=== PATIENT | female | born 1950 | race Caucasian/White ===

== ENCOUNTER 2018-10-25 18:32 | Inpatient (IN) ==
[2018-10-25] MEDS ORDERED: SOLU-MEDROL IV ONE (19:57)
[2018-10-25] MEDS ORDERED: DUONEB (A & A) INH ONE (19:57)
--- NOTE | 2018-10-25 20:36 | Diag Imaging Result Doc PS360 ---
EXAM: CHEST-1 VIEW 10/25/2018 HISTORY: sob TECHNIQUE: AP upright portable at 2023 COMMENT: There is alveolar and interstitial opacity generally particularly in the lower lobes. This is worse than on 03/10/2018. IMPRESSION: Pulmonary edema plus minus pneumonia. Electronically signed by Quoc Lawrence 10/25/2018 8:33 PM
[2018-10-25 20:40] LABS: BASO# 0.06 X1000 (0.0-0.2); BASO% 0.6 % (0.0-0.8); EOS# 0.01 X1000 (0.0-0.7); EOS% 0.1 % (0.0-10.0); HEMOGLOBIN 13.4 g/dL (12.0-16.0); IMM GRAN# 0.03 X1000 (0.0-0.04); IMM GRAN% 0.3 % (0.0-0.5); LYMPH# 1.23 X1000 (1.2-3.4); LYMPH% 11.4 % (20.5-51.1); MCHC 32.7 g/dL (33-37); MCV 85.6 FL (81-99); MONO# 0.66 X1000 (0.11-0.59); MONO% 6.1 % (1.7-9.3); MPV 10.4 FL (7.4-10.4); NEUT# 8.76 X1000 (1.4-6.5); NEUT% 81.5 % (42.2-75.2); PLT 200 X1000 (130-400); RBC 4.79 XMIL (4.2-5.4); RDW 16.1 % (11.5-14.5); WBC 10.75 X1000 (4.8-10.8)
[2018-10-25 20:52] LABS: AGAP 15; ALB/GLOB RATIO 1.2; ALBUMIN 3.5 g/dL (3.5-5.0); ALKALINE PHOSPHATASE 112 U/L (32-104); BUN 29 mg/dL (8-22); CALCIUM 8.6 mg/dL (8.8-10.2); CHLORIDE 95 mmol/L (98-107); COSMO 276; CREATININE 0.6 mg/dL (0.5-0.9); ESTIMATED GFR > 60; GLUCOSE 159 mg/dL (70-104); GOT 18 U/L (10-30); GPT 8 U/L (10-36); POTASSIUM 4.4 mmol/L (3.5-5.1); SODIUM 133 mmol/L (136-145); TCO2 23 mmol/L (25-35); TOTAL BILIRUBIN 0.56 mg/dL (0.20-1.00); TOTAL PROTEIN 6.4 g/dL (6.3-8.3)
[2018-10-25] MEDS ORDERED: LASIX IV ONE (21:16)
[2018-10-25] MEDS ORDERED: LEVAQUIN 750 MG/D5W 750 MG/150 ML IVPB IV ONE (21:17)
--- NOTE | 2018-10-25 23:45 | PROVIDER DOCUMENTATION ---
This chart was entered by Leah Lucas Scribe, acting as scribe for Clive Braxton MD. HPI-Respiratory General - General Chief Complaint: Shortness of Breath Stated Complaint: PNEUMONIA Time Seen by Provider: 10/25/18 19:08 Source: patient Allergies/Adverse Reactions: Patient Allergies Allergy/AdvReac Type Severity Reaction Status Date / Time cephalexin monohydrate * Allergy SWELLING Verified 03/07/18 21:22 [From Keflex] Home Medications: Home Medication List Medication Instructions Recorded Confirmed Last Taken Type Naproxen 500 mg PO BID 09/16/17 03/07/18 09/15/17 History Oxycodone HCl/Acetaminophen 1 each PO 4XDAY PRN PRN 09/16/17 03/07/18 Unknown History [Percocet 7.5-325 mg Tablet] Gabapentin 400 mg PO TID 03/07/18 03/07/18 Unknown History Tizanidine HCl 4 mg PO DAILY 03/07/18 03/07/18 Unknown History Albuterol Sulfate Inhaler 2 puff INH Q6H PRN PRN 30 Days #1 03/10/18 Unknown Rx [Ventolin Hfa] inhaler Fluticasone/Salmet 250/50 INH 1 puff INH RTBID 30 Days #1 inhaler 03/10/18 Unknown Rx [Advair 250/50 Diskus] Guaifenesin E.r. [Mucinex] 600 mg PO BID #60 tab 03/10/18 Unknown Rx Levofloxacin [Levaquin] 500 mg PO DAILY #7 tab 03/10/18 Unknown Rx Naproxen [Naprosyn] 500 mg PO BID tablet 03/10/18 Unknown Rx - History of Present Illness-Resp Nature of Presenting Problem: Pt is 67/F presenting tp ED w/ SOB, she sts that she has had a hard time breathing for some time but that it has gotten worse over the last week or so. She sts that she had a surgery that removed part of her lung back in and she has had a hard time since. She reports coughing as well. She has o2 at home on 6l and uses breathing treatments. pt is a current everyday smoker. Hx of COPD Severity in ED: reports: moderate Onset/Duration: reports: other (1-2 weeks) Timing: reports: getting worse Exposure: reports: other (COPD) Cough Quality/Degree: reports: moderate Episode Frequency: chronic episodes Current Respiratory Medication Therapy: Initiated albuterol Modifying Factors: improves with: exertion, coughing, oxygen Associated Symptoms: reports: cough, short of breath Similar Symptoms Previously?: Yes Recently seen or treated by another doctor?: No Review of Systems - Adult - REVIEW OF SYSTEMS - ADULT Constitutional: reports: no symptoms reported. denies: chills, fever Eyes: reports: no symptoms reported Ears, Nose, Mouth & Throat: reports: no symptoms reported Cardiovascular: denies: chest pain, edema Respiratory: reports: chronic cough, shortness of breath Gastrointestinal: reports: no symptoms reported Genitourinary: reports: no symptoms reported Musculoskeletal: reports: no symptoms reported Integumentary: reports: no symptoms reported Neurological: reports: no symptoms reported. denies: dizziness/vertigo, headache/migraines Psychiatric: reports: no symptoms reported Endocrine: reports: no symptoms reported Hematologic/Lymphatic: reports: no symptoms reported Allergic/Immunologic: reports: no symptoms reported All Other Systems: Reviewed and Negative Past History - Adult - PAST MEDICAL HISTORY-ADULT Review of Records: reports: Old Records Reviewed, Nursing Assessment Review, Medications Reviewed, Social history reviewed & non-contributory. Respiratory: reports: COPD - PRIOR SURGERIES/PROCEDURES Surgical/Procedure History: reports: hysterectomy - IMMUNIZATION STATUS Childhood Immunizations: See Nurse Assessment Flu Vaccine: See Nurse Assessment - SOCIAL HISTORY Smoking: cigarettes Provider spent 3-5 mins advising pt. on dangers of tobacco.: Discussed manners to quit use, and f/u contacts for add'l counseling. Substance Use: none/never Alcohol Use Frequency: never Living Situation: family Physical Exam-General - CONSTITUTIONAL General Appearance: appears well, alert, no apparent distress - EYES Eyes: PERRL/EOMI - HEAD, EARS, NOSE, MOUTH & THROAT HENMT: moist mucous membranes, normal ENT inspection, TMs normal - NECK Neck: non-tender, full range of motion, supple, normal inspection - RESPIRATORY Respiratory: chest non-tender, other (course breath sounds bilaterally) - CARDIOVASCULAR Cardiovascular: regular rate, rhythm, no edema - LYMPHATIC Lymphatic: no adenopathy - MUSCULOSKELETAL Back Exam: normal inspection, no CVA tenderness, no vertebral tenderness - SKIN Integumentary: normal color, warm/dry - NEUROLOGIC Neurologic: grossly normal - PSYCHIATRIC Psych/Mental Status: normal mood/affect, normal thought content, normal thought process, oriented x 3 Progress - PLAN OF CARE/RESULTS Progress/Plan/Lab Results: Vital Signs - 8 hr 10/25/18 18:53 10/25/18 19:00 10/25/18 20:31 Temperature 98.8 F Pulse Rate 100 H 88 Respiratory Rate 20 16 Blood Pressure 94/48 O2 Sat by Pulse Oximetry 71 L 10/25/18 21:41 Temperature Pulse Rate 87 Respiratory Rate 18 Blood Pressure 103/65 O2 Sat by Pulse Oximetry 90 L 10/25/18 20:25 Influenza Screen - Final Nasopharyngeal Laboratory Results - last 24 hr 10/25/18 10/25/18 10/25/18 19:11 19:11 19:11 WBC 10.75 RBC 4.79 Hgb 13.4 Hct 41.0 MCV 85.6 MCH 28.0 MCHC 32.7 L RDW Std Deviation 16.1 H Plt Count 200 MPV 10.4 Immature Gran % (Auto) 0.3 Neut % (Auto) 81.5 H Lymph % (Auto) 11.4 L [place] % (Auto) 6.1 Eos % (Auto) 0.1 Baso % (Auto) 0.6 Immature Gran # (Auto) 0.03 Neut # (Auto) 8.76 H Lymph # (Auto) 1.23 [place] # (Auto) 0.66 H Eos # (Auto) 0.01 Baso # (Auto) 0.06 Sodium 133 L Potassium 4.4 Chloride 95 L Carbon Dioxide 23 L Anion Gap 15 BUN 29 H Creatinine 0.6 Estimated GFR/1.73 m2 > 60 BUN/Creatinine Ratio 48 Glucose 159 H Calculated Osmolality 276 Calcium 8.6 L Total Bilirubin 0.56 AST 18 ALT 8 L Alkaline Phosphatase 112 H Troponin T Tmi-S-Cleqswiiask Pept 1012 H Total Protein 6.4 Albumin 3.5 Globulin 2.9 Albumin/Globulin Ratio 1.2 10/25/18 19:11 WBC RBC Hgb Hct MCV MCH MCHC RDW Std Deviation Plt Count MPV Immature Gran % (Auto) Neut % (Auto) Lymph % (Auto) [place] % (Auto) Eos % (Auto) Baso % (Auto) Immature Gran # (Auto) Neut # (Auto) Lymph # (Auto) [place] # (Auto) Eos # (Auto) Baso # (Auto) Sodium Potassium Chloride Carbon Dioxide Anion Gap BUN Creatinine Estimated GFR/1.73 m2 BUN/Creatinine Ratio Glucose Calculated Osmolality Calcium Total Bilirubin AST ALT Alkaline Phosphatase Troponin T < 0.010 Fif-K-Mvtnsyrpjla Pept Total Protein Albumin Globulin Albumin/Globulin Ratio Orders Category Date Time Status cxr [CHEST-1 VIEW] [RAD] Stat Exams 10/25/18 19:55 Completed BLOOD CULTURE [BLDCUL] Stat Lab 10/25/18 19:11 Results BNP [PRO B-NATRIURETIC PEPTIDE] Stat Lab 10/25/18 19:11 Completed CBC WITH ELECTRONIC DIFF [HEME] Stat Lab 10/25/18 19:11 Completed COMPREHENSIVE METABOLIC PANEL [CHEM] Stat Lab 10/25/18 19:11 Completed INFLUENZA SCREEN A/B Stat Lab 10/25/18 20:25 Completed TROPONIN T Stat Lab 10/25/18 19:11 Completed UA [URINALYSIS] [URINALYSIS] Stat Lab 10/25/18 19:56 Uncollected Albuterol 2.5MG/Ipratrop 0.5MG [Duoneb (A & A)] Med 10/25/18 19:57 Discontinued 3 ml INH NOW ONE Furosemide [Lasix] Med 10/25/18 21:16 Discontinued 40 mg IV NOW ONE Levofloxacin 750 mg/D5w [Levaquin 750 mg/D5w] Med 10/25/18 21:17 Discontinued 750 mg in 150 ml IV NOW Methylprednisolone Sod Succ [Solu-Medrol] Med 10/25/18 19:57 Discontinued 125 mg IV NOW ONE Aerosol Treatments Routine Oth 10/25/18 19:57 Completed Aerosol Treatments Stat Oth 10/25/18 19:57 Completed Result Diagrams: 10/25/18 19:11 10/25/18 19:11 - EKG 1 Time of EKG reading by physician:: 19:15 EKG Read and Signed by:: Clive Braxton EKG Interpretation (*Must complete 3 of following elements*): Abnormal (Normal sinus rhythm, Septal infarct, Age undetermined Abnormal ECG) Rate: 97 Rhythm: sinus - XRAY 1 XRAY: Bilateral XRAY Study: Chest Impression: Abnormal (COMMENT: There is alveolar and interstitial opacity generally particularly in the lower lobes. This is worse than on 03/10/2018. IMPRESSION: Pulmonary edema plus minus pneumonia. Electronically signed by Quoc Lawrence 10/25/2018 8:33 PM 10/25/182032 Interpreting Physician: Quoc Lawrence MD Dictated Date/Time: 10/25/182032) Comparison with other Films: changes noted Departure - Departure Date of Disposition Decision: 10/25/18 Time of Disposition Decision: 23:44 DIAGNOSIS: Pleural effusion Pneumonia Qualifiers: Pneumonia type: due to unspecified organism Laterality: unspecified laterality Lung location: unspecified part of lung Qualified Code(s): J18.9 - Pneumonia, unspecified organism Disposition: ADMITTED INPATIENT 09 Certified Medical Emergency: Emergent Condition: Stable Referrals and Follow-Ups: None,PCP [Primary Care Provider] - - Critical Care Note This patient required my direct & personal management of CC.: No Attestation - Physician/ BONNY Attestation Patient care was provided by Advanced Practice Provider:: No The physician spent face to face time with patient:: Yes Advanced Practice Provider documentation review:: Supervising physician onsite and consulted in the evaluation and care of this patient. The physician did have a face to face encounter with the patient. This chart was documented by the indicated scribe, (Leah Lucas, Ann) and accurately reflects the services I performed and decisions made by me, Clive Braxton MD, as attested by the provider's signature.
[2018-10-26] MEDS ORDERED: ZOFRAN IV PRN (01:45)
--- NOTE | 2018-10-26 02:37 | HISTORY AND PHYSICAL ---
PRIMARY CARE PHYSICIAN: Dr. Claros. CHIEF COMPLAINT: Shortness of breath. HISTORY OF PRESENTING ILLNESS: A 67-year-old female with a history of COPD on home oxygen who had presented to emergency department complaining of having cough that was productive of yellowish material, shortness of breath for the past several days. The patient states that she was in [facility] in July or so where she had a lung biopsy and since that time she has been having frequent pneumonia, cough and shortness of breath. The patient states that earlier today she tried to increase her oxygen and did some nebs treatment. However, she did not have any improvement. The patient was seen in the emergency department and due to her presenting symptoms it was thought that she would need admission for further management. At the time of my examination, she denied any headache, fever, chills, chest pain, hemoptysis, but complained of shortness of breath, cough and not feeling well. PAST MEDICAL HISTORY: Includes COPD on home oxygen. PAST SURGICAL HISTORY: Cholecystectomy hysterectomy, back surgery. ALLERGIES: Keflex. CURRENT MEDICATIONS: Current medications include the following: Albuterol sulfate inhaler 2 puffs inhalation q.6 hours, Advair 250/50 one puff inhalation b.i.d., gabapentin 400 mg p.o. t.i.d., naproxen 500 mg p.o. b.i.d., Percocet 7.5 mg 1 p.o. 4 times a day, tizanidine 4 mg 1 p.o. daily. SOCIAL HISTORY: 80 pack-year history of smoking. Denies any history of alcohol or illicit drug use. FAMILY HISTORY: No history of coronary artery disease. REVIEW OF SYSTEMS: Fourteen point review of system as listed in HPI. Other systems negative. PHYSICAL EXAMINATION: GENERAL: Cooperative, friendly female. She is resting more comfortably now. VITAL SIGNS: Temperature 98.8 degrees, pulse 100, respirations 20, blood pressure 94/48. HEENT: Atraumatic, normocephalic. Extraocular movements intact. PERRLA. NECK: No masses. CHEST: Rhonchi. CARDIOVASCULAR: Regular rate and rhythm. ABDOMEN: Soft, positive bowel sounds. EXTREMITIES: No edema. NEUROLOGIC: She is awake, alert, oriented x3. GENITOURINARY: No bladder distention. SKIN: Warm. LABORATORIES AND STUDIES: WBCs 10.75, hemoglobin 13.4, hematocrit 41.0, platelets 200,000. Sodium 133, potassium 4.4, chloride 95, CO2 23, BUN is 29, creatinine 0.6, glucose 159. ProBNP is 1012. Troponin is 0.010. Chest x-ray shows pulmonary edema plus/minus pneumonia. ASSESSMENT: A 67-year-old female with a history of chronic obstructive pulmonary disease on home oxygen. Had presented to the emergency department with several days history of worsening shortness of breath. The patient was evaluated in the emergency department, had imaging done, was suspicious for pneumonia. Subsequently, she will need admission for further management. 1. Acute on chronic respiratory failure. 2. Suspected pneumonia. 3. Chronic obstructive pulmonary disease. 4. Chronic low back pain. PLAN: 1. We will admit patient to medical floor with telemetry. 2. We will continue with supplemental oxygen. 3. If she does not improve, we will consider BiPAP initially. 4. We will check blood cultures and start patient on DuoNebs and continue with IV antibiotics. 5. Give patient adequate pain control. 6. Put patient on DVT prophylaxis with SCD. 7. Continue to follow, and reassess and make further recommendation based on patient's clinical course. cc: John Bates MD
[2018-10-26] MEDS: DUONEB (A & A) INH SCH ×6 (03:09→23:28)
[2018-10-26] MEDS: SOLU-MEDROL IV SCH ×3 (05:09→23:09)
--- NOTE | 2018-10-26 07:34 | EKG Report ---
Test Performed on : 10/25/2018 7:15:26 PM Test Reason : ED. NO EKG ORDER FOR MUSE Blood Pressure : / mmHG Vent. Rate : 097 BPM Atrial Rate : 097 BPM P-R Int : 126 ms QRS Dur : 080 ms QT Int : 344 ms P-R-T Axes : 066 038 023 degrees QTc Int : 436 ms Normal sinus rhythm. Septal infarct (cited on or before 19-JUL-2010) Abnormal ECG When compared with ECG of 07-MAR-2018 20:56, No significant change was found Unconfirmed Result
[2018-10-26] MEDS: PERCOCET-5 PO PRN ×2 (09:03→15:09)
[2018-10-26] MEDS: ZOSYN 3.375 GM in NS 50 ML IV SCH ×3 (10:54→23:09)
[2018-10-26] MEDS: PROTONIX IV SCH (10:54)
[2018-10-26] MEDS: SODIUM CHLORIDE 0.9% INJ SCH (10:54)
--- NOTE | 2018-10-26 10:54 | Diag Imaging Result Doc PS360 ---
CT THORAX W/O CONTRAST - 10/26/2018 INDICATION: pna COMPARISON: 10/25/2018, 09/16/2017 FINDINGS: There is advanced COPD. There are extensive multilobar bilateral infiltrates worse in the lower lobes. The appearance is nonspecific but most suggestive of bronchopneumonia. There is mild cardiomegaly. No adenopathy. There are apparent surgical resection sutures in the right upper lobe. Upper abdominal images are grossly normal. No acute or destructive bony lesions. IMPRESSION: 1. Extensive multilobar bilateral infiltrates consistent with bronchopneumonia. 2. COPD. 3. Mild cardiomegaly. This exam was performed using automated exposure control, adjustment of mA or kV according to patient size, and/or use of iterative reconstruction technique Electronically signed by Hiram Acosta 10/26/2018 10:51 AM
[2018-10-26] MEDS: CHLORASEPTIC SPRAY MT PRN ×2 (13:43→18:15)
[2018-10-26 15:23] LABS: URINE SOURCE CLEAN CATCH
[2018-10-26 15:36] LABS: BILIRUBIN URINE NEGATIVE (NEGATIVE); BLOOD URINE MODERATE (NEGATIVE); COLOR YELLOW; GLUCOSE URINE NEGATIVE (NEGATIVE); KETONE URINE NEGATIVE (NEGATIVE); LEUKOCYTES URINE NEGATIVE (NEGATIVE); NITRITE URINE NEGATIVE (NEGATIVE); PROTEIN URINE 50 mg/dL (NEGATIVE); SP GRAVITY URINE 1.016; TURBIDITY URINE CLEAR (CLEAR); UROBILINOGEN URINE NORMAL (NORMAL)
[2018-10-26 15:40] LABS: UR EPITHELIAL CELLS <10 /HPF (<10); URINE BACTERIA NEGATIVE /HPF; URINE RBC 20-40 /HPF (<10); URINE WBC <10 /HPF (<10)
[2018-10-26 15:57] LABS: URINE CASTS NONE SEEN; URINE CRYSTALS NONE SEEN; URINE SMALL ROUND CELLS NONE SEEN; URINE YEAST PRESENT
[2018-10-26] MEDS: ZITHROMAX PO SCH (17:53)
[2018-10-26] MEDS ORDERED: LEVAQUIN 500 MG/D5W 500 MG/100 ML IVPB IV SCH (21:00)
[2018-10-27] MEDS: PERCOCET-5 PO PRN ×4 (00:16→20:46)
[2018-10-27] MEDS: DUONEB (A & A) INH SCH ×5 (03:41→20:20)
--- NOTE | 2018-10-27 04:27 | PULMONOLOGY CONSULTATION ---
DATE: 10/26/2018 REQUESTING PHYSICIAN: Dr. Hummel. REASON FOR CONSULTATION: COPD. HISTORY OF PRESENT ILLNESS: Ms. Swanson is a 67-year-old white female with COPD, chronic hypoxemic respiratory failure, who was referred to [facility] last fall for a pulmonary nodule by her report. She was evaluated by Dr. Cardona, and subsequently underwent a robotic surgery for a lung biopsy in July. The patient reports she was released from Dr. Cardona' clinic at the end of July with plans to follow up with pulmonary locally. The patient reports she has not done well since that time. She has lost greater than 20 pounds over the last year. The report is not available from that biopsy, but she reports it may have demonstrated " tissue," but no evidence of cancer. The patient reports she has had progressive shortness of breath, small-to- moderate amount of sputum production, intermittent chills, decreased appetite with ongoing weight loss. She reports her breathing has worsened over the last week. PAST MEDICAL HISTORY/PROBLEM LIST: 1. COPD as per above. 2. Osteoarthritis and chronic back pain. 3. Status post back surgery. 4. Status post cholecystectomy. 5. Status post hysterectomy. SOCIAL HISTORY: Ongoing tobacco use. No alcohol use listed. FAMILY HISTORY: Positive for renal failure, hepatitis B, lung cancer, COPD, kidney failure. Both parents in a motor vehicle accident. REVIEW OF SYSTEMS: Is as noted in the HPI and includes occasional chills, sputum production which is minor in amount without recent change, weight loss, fatigue, increased shortness of breath, decreased appetite/anorexia. PHYSICAL EXAMINATION: General: Reveals a frail white female with a BMI of 13.5. She has a documented 20-pound weight loss over the last year. Vital Signs: Blood pressure 112/59, heart rate 67, respiratory rate 12, oxygen saturation 92%. HEENT: Pupils are equal and reactive. Oropharynx is clear. Neck: Supple. Chest: Reveals coarse crackles and rhonchi bilaterally without tactile fremitus. Cardiac Exam: S1 and S2. Abdomen: Soft and scaphoid. Extremities: Without edema. LABORATORY DATA: White blood count 10.75, hemoglobin 13.4, platelet count 200,000. Sodium 133, potassium 4.4, chloride 95, bicarbonate 23, BUN 29, creatinine 0.6. CT scan of the thorax is reviewed. She has some bilateral infiltrates with a bibasilar predominance with areas of consolidation. She has a suture line in the right upper lobe. CT scan is compared to prior CT scan from 09/16/2017, the patient had some minor infiltrates/consolidation in the lung bases compared to current scan. Sodium 133, potassium 4.4, chloride 95, bicarbonate 23, BUN 29, creatinine 0.6, white blood count 10.75, hemoglobin 13.4, platelet count 200,000. IMPRESSION: The patient is a 67-year-old with chronic obstructive pulmonary disease, hypoxemic respiratory failure, abnormal weight loss, with progressive consolidation in the lower lobes. It is possible that the findings are an acute event and this may represent a simple bacterial pneumonia. However, it is possible that she is having progressive consolidation from a yet determined lung process such as pulmonary fibrosis or other infiltrative diseases. Malignancy has not been completely excluded with the radiographic findings. RECOMMENDATIONS: 1. Agree with steroids and antibiotics with bronchodilators as you are doing. 2. Attempt to collect sputum for C and S. 3. Encourage the patient to stop smoking. 4. Send connective tissue cascade. 5. Rule out multiple myeloma. 6. Obtain biopsy from [facility] which was performed last fall. 7. Agree with nutrition supplementation. 8. Prognosis is guarded given her progressive decline. cc: Paulo Isbell MD
[2018-10-27] MEDS: SOLU-MEDROL IV SCH ×3 (04:50→20:45)
[2018-10-27] MEDS: ZOSYN 3.375 GM in NS 50 ML IV SCH ×4 (04:51→22:49)
[2018-10-27 07:02] LABS: HEMATOCRIT 36.7 % (37.0-47.0); HEMOGLOBIN 12.1 g/dL (12.0-16.0); MCH 28.9 PG (27-31); MCV 87.8 FL (81-99); RBC 4.18 XMIL (4.2-5.4); WBC 6.18 X1000 (4.8-10.8)
[2018-10-27 07:07] LABS: AGAP 13; BUN 40 mg/dL (8-22); CALCIUM 8.7 mg/dL (8.8-10.2); CHLORIDE 100 mmol/L (98-107); COSMO 297; CREATININE 0.5 mg/dL (0.5-0.9); ESTIMATED GFR > 60; GLUCOSE 277 mg/dL (70-104); SODIUM 139 mmol/L (136-145); TCO2 26 mmol/L (25-35)
[2018-10-27] MEDS: ZITHROMAX PO SCH (10:44)
[2018-10-27] MEDS: SODIUM CHLORIDE 0.9% INJ SCH (10:45)
[2018-10-27] MEDS: CHLORASEPTIC SPRAY MT PRN (10:45)
[2018-10-27] MEDS: PROTONIX IV SCH (10:45)
[2018-10-28] MEDS: DUONEB (A & A) INH SCH ×6 (00:14→19:37)
--- NOTE | 2018-10-28 01:18 | PROGRESS NOTE ---
DATE: 10/27/2018 SUBJECTIVE: This patient is complaining of generalized pain and shortness of breath, as per the patient she has been feeling worse since last July. For now will continue with the same management. Pulmonary Department on board. OBJECTIVE: Vital Signs: Temperature 97.4 degrees, pulse 82, respiratory rate 16, blood pressure 129/72, oxygen saturation 94 on 4 L of nasal cannula. General: female 67-year-old with cachexia, BMI of 13.5. HEENT: Head normocephalic. No trauma. PERRLA. Neck: Supple. No JVD. No masses. Central trachea. Chest: Decreased breath sounds globally with coarse breath sounds and some crackles and rhonchi mostly at the bases. Cardiovascular: RRR. Abdomen: Soft, is nontender, nondistended. No hepatosplenomegaly. Extremities: No edema, no clubbing, no cyanosis. Decreased muscle mass and some painful to palpation which is generalized. Neurological: The patient is alert and oriented x3, no focal deficits. LABORATORY: WBC 6.1, hemoglobin 12.1, hematocrit 36.7, platelet 184,000, sodium 139, potassium 4, chloride 100, bicarbonate 26, BUN 40, creatinine 0.5, glucose 277, calcium 8.7, CEA 4.6. TSH is 0.11. ASSESSMENT AND PLAN: 1. Respiratory failure likely due to pneumonia and history of chronic obstructive pulmonary disease, will continue with the same management. Continue with steroids, antibiotics, bronchodilators, pulmonary toilet and oxygen supplementation. 2. Bilateral lower lobe pneumonia as above. 3. Chronic obstructive pulmonary disease, she is not wheezing at this moment. Will continue with the same management. Pulmonary Department on board. 4. Severe protein calorie malnutrition, continue with her diet. Likely we need to consult the caponizer. 5. Chronic low back pain. She has been placed on pain medication. We will continue with the same management. cc: Ronaldo Garza MD
[2018-10-28] MEDS: SOLU-MEDROL IV SCH ×3 (04:26→21:00)
[2018-10-28] MEDS: ZOSYN 3.375 GM in NS 50 ML IV SCH ×3 (04:27→16:30)
[2018-10-28 06:55] LABS: BASO# 0.01 X1000 (0.0-0.2); BASO% 0.1 % (0.0-0.8); HEMATOCRIT 36.1 % (37.0-47.0); HEMOGLOBIN 11.8 g/dL (12.0-16.0); IMM GRAN# 0.12 X1000 (0.0-0.04); IMM GRAN% 1.5 % (0.0-0.5); LYMPH# 0.41 X1000 (1.2-3.4); LYMPH% 5.1 % (20.5-51.1); MCH 28.7 PG (27-31); MCHC 32.7 g/dL (33-37); MCV 87.8 FL (81-99); MONO# 0.35 X1000 (0.11-0.59); MONO% 4.4 % (1.7-9.3); MPV 9.7 FL (7.4-10.4); NEUT# 7.12 X1000 (1.4-6.5); NEUT% 88.9 % (42.2-75.2); PLT 244 X1000 (130-400); RBC 4.11 XMIL (4.2-5.4); RDW 15.9 % (11.5-14.5); WBC 8.01 X1000 (4.8-10.8)
--- NOTE | 2018-10-28 07:00 | PULMONOLOGY PROGRESS NOTE ---
DATE: 10/27/2018 SUBJECTIVE: The patient is awake, alert, and conversant. She reports that she is having a "fair day". No increased work of breathing. OBJECTIVE: Vital Signs: The patient has been afebrile for the last 24 hours. Blood pressure 129/72, heart rate 82, respiratory rate 16, oxygen saturation 94% on 4 L per nasal cannula. HEENT: Pupils are equal and reactive. Oropharynx is clear. Neck: Supple. Chest: Reveals crackles in both lung bases. Cardiac Examination: S1-S2. Abdomen: Soft and without hepatosplenomegaly. Extremities: Without edema. Laboratories: No new microbiology data. White blood count 6.18, hemoglobin 12.1, platelet count 184,000. IMPRESSION: A 67-year-old with severe chronic obstructive pulmonary disease, hypoxemic respiratory failure, abnormal weight loss, with progressive consolidation in the lower lobes. Acuity of the consolidation is not clear but may be a progressive chronic process versus an acute process. She has been unable to produce sputum. PLAN: 1. Continue current treatment including steroids, antibiotics, and bronchodilators. 2. I am awaiting medical records from [facility]. 3. QuantiFERON Gold, immunoelectrophoresis, and connective tissue cascade are pending. 4. Additional recommendations pending hospital course and review of outside data. cc: Paulo Isbell MD
[2018-10-28 07:12] LABS: LYMPHS 2 % (21-51); MONO 2 % (1-9); SEGS 96 % (42-75)
[2018-10-28 07:20] LABS: AGAP 13; BUN 41 mg/dL (8-22); CALCIUM 8.3 mg/dL (8.8-10.2); CHLORIDE 103 mmol/L (98-107); COSMO 302; CREATININE 0.5 mg/dL (0.5-0.9); ESTIMATED GFR > 60; GLUCOSE 194 mg/dL (70-104); SODIUM 144 mmol/L (136-145); TCO2 28 mmol/L (25-35)
[2018-10-28] MEDS: PROTONIX IV SCH (10:48)
[2018-10-28] MEDS: SODIUM CHLORIDE 0.9% INJ SCH (10:48)
[2018-10-28] MEDS: ZITHROMAX PO SCH (10:48)
[2018-10-28] MEDS: PERCOCET-5 PO PRN ×2 (10:48→17:44)
[2018-10-28] MEDS: XANAX PO PRN ×2 (12:16→17:44)
[2018-10-28] MEDS: NICODERM PATCH TD SCH (12:16)
--- NOTE | 2018-10-28 14:46 | PROGRESS NOTE ---
DATE: 10/28/2018 SUBJECTIVE: This patient is still complaining of generalized weakness and shortness of breath. As per the patient she has been declining since last July of 2018. Daughter is at the bedside and I explained to her the whole situation, they asked for some records from [facility] and they will be provide those for us. OBJECTIVE: Vital Signs: Temperature 98.3 degrees, pulse 64, respiratory rate 16, blood pressure 158/84, oxygen saturation 92 on 4 L of nasal cannula. HEENT: Head normocephalic. No trauma. PERRLA. Neck: Supple. No JVD. No masses. Central trachea. Chest: Decreased breath sounds globally with coarse breath sounds, crackles and rhonchi mostly at the bases. Cardiovascular: RRR. Abdomen: Soft, nontender and nondistended. No hepatosplenomegaly. Extremities: No edema. No clubbing. No cyanosis. Decreased muscle mass. Neurological: This patient is alert and oriented x3. No focal deficits. LABORATORY DATA: WBC 8, hemoglobin 11.8, hematocrit 36.1, platelets 244,000. Sodium 144, potassium 4, chloride 103, bicarbonate 28, BUN 41, creatinine 0.5, glucose 193, calcium 8.3. TSH is 0.08, but the T4 is 1.2. ASSESSMENT AND PLAN: 1. Respiratory failure likely secondary to pneumonia and history of chronic obstructive pulmonary disease. She does have infiltrates that are more prominent at the bases. We will continue with steroids, antibiotics, bronchodilator, pulmonary toilet, and oxygen supplementation. Pulmonary Department is on board. 1. Bilateral lower lobe pneumonia. As above. Continue with the same treatment. 2. Chronic obstructive pulmonary disease. She is not having wheezing. We will continue with the same management. Pulmonary Department is on board. 3. Severe protein calorie malnutrition. We will continue with her diet. Likely we will need to consult the cpc tomorrow. 4. Chronic low back pain. She has been placed on pain medication. We will continue with the same management. 5. Anxiety. I have placed this patient on a low dose of Xanax, she is really anxious today. We will monitor. cc: Ronaldo Garza MD
[2018-10-28] MEDS ORDERED: VANCOMYCIN IV PER PHARMACY MISC SCH (16:00)
[2018-10-28] MEDS: NEURONTIN PO SCH ×2 (16:30→22:14)
[2018-10-28] MEDS: VANCOMYCIN 1 GM/NS 1 GM/250 ML IVPB IV SCH (17:44)
--- NOTE | 2018-10-28 17:49 | INFECTIOUS DISEASE CONSULT REP ---
DATE: 10/28/2018 CONCLUSION: The patient tells me that since the end of July, she has had pneumonia. She does on chest x-ray have infiltrates that could well be due to pneumonia. The fact that the patient says that she has a long-standing pneumonia brings up the possibility that there may be something other than just a bacterial or viral pneumonia, such as a mycobacterial infection or a fungal infection. Most likely, the patient has pneumonia because of severe lung disease due to cigarette smoking. However, there may be an immune deficiency, specifically an immunoglobulin deficiency. RECOMMENDATIONS: 1. I agree with treating the patient with Zosyn. 2. I have added vancomycin. 3. The immunoglobulins have already been ordered. DISCUSSION: The patient, as mentioned above, told me since the end of July she has had pneumonia. She has been treated for it on several occasions. She has also been in the hospital for it. The patient states she has fever, she has generalized aching with it, and she is losing weight. At first, she was coughing up some sputum that had a yellow color, and now she does not seem to be coughing up much of anything. DIAGNOSTIC STUDIES: The patient's CBC shows a white count of 8010, hemoglobin 11.8, platelet count 244,000. Creatinine 0.5, GFR is greater than 60. Liver function studies are normal. Urinalysis shows red cells, but no white cells or bacteria. Swab for influenza is negative. Chest x-ray shows bilateral infiltrates. PAST MEDICAL HISTORY/REVIEW OF SYSTEMS: Eyes and ears: She does not have any problem hearing or seeing. Neck: No stiffness. Respiratory: See Present Illness. Cardiac: No chest pains or palpitations. Gastrointestinal: No nausea/vomiting. She is losing weight, and she does not eat much. Genitourinary: No dysuria or flank pain. Bones, joints, muscles: The patient does not have any swollen joints, but she says she aches all over. Endocrine: She is not a diabetic, and she does not have thyroid disease. Neurologic: She is not having seizures. She has not lost recently any motor or sensory function. Integument: No rash. OBSTETRICAL/GYNECOLOGICAL HISTORY: She is a 1, para 1, AB 0. She has had a hysterectomy. PREVIOUS HOSPITALIZATIONS AND OPERATIONS: She has had a labor and delivery, a hysterectomy, admissions for urinary tract infection, pneumonia, and bronchitis. She has had an appendectomy. She had a lung surgery and they removed a mass from the lung; the patient did not know the exact diagnosis of the lung that was removed. MEDICAL DISEASES: Positive for COPD and cigarette smoking. INFECTIOUS DISEASE HISTORY: See above. FAMILY HISTORY: Positive for renal failure, cancer, and diabetes mellitus. [place]IAL H[place]ORY[place] . She smokes cigarettes but does not drink alcoholic beverages or abuse drugs. ALLERGIES: She has an allergy to Keflex manifested by swelling. PET HISTORY: She has a cat as a pet. HOME MEDICATIONS: Include the following: Albuterol inhaler, gabapentin, Mucinex, naproxen, oxycodone, and tizanidine. PHYSICAL EXAMINATION: Vital Signs: Temperature is 98.3 degrees, pulse 64, respirations 16, blood pressure 158/84. Height/Weight: Patient is 5 feet 5 inches tall, and the weight is listed as 81 pounds. General: This is a chronically ill- and malnourished-appearing elderly female. She did not appear to be in any acute distress. Head, eyes, ears, nose, and throat: She can hear my spoken words and see near objects. She does not have any white coating on her tongue. Neck: No meningismus. Thorax: She has increased AP diameter of the chest. Lungs: Distant breath sounds, but I did not hear any rales or rhonchi. Cardiovascular: Heart rate is regular. Abdomen: Soft. Bowel sounds were present. Neurologic: The patient is alert. She can move her extremities. There is no tremor. Her sensation was intact to touch. Her memory as regarding her medical history appeared to be intact. Integument: No rash. Thank you for the consult. cc: Josh Gant MD
--- NOTE | 2018-10-28 20:53 | PULMONOLOGY PROGRESS NOTE ---
DATE: 10/28/2018 INTERIM HISTORY: Patient has been evaluated by Infectious Disease. She is tearful today due to back pain which is chronic in character. Family did bring some medical documents on Ms Swanson but none from her last admission in August and biopsy. OBJECTIVE: Patient has been afebrile over the last 24 hours. Blood pressure 145/74, heart rate 63, respiratory rate 16, oxygen saturation 100% on nasal cannula .HEENT: Pupils are equal and reactive, oropharynx clear. Neck: Is supple . Chest: Reveals crackles in lung bases . Cardiac: S1-S2 . Abdomen: Soft without hepatosplenomegaly. Extremities: Without edema. LABORATORIES: White blood count 8.01, hemoglobin 11.8, platelet count 244,000 , sodium 144, potassium 4.0, chloride 103, bicarbonate 28, BUN 41, creatinine 0.5. IMPRESSION: 67-year-old with severe chronic obstructive pulmonary disease, hypoxemic respiratory failure, abnormal weight loss, progressive consolidation in the lower lobes. RECOMMENDATIONS: 1. Continue current treatment regimen . 2. Await immunoglobulin studies. 3. Await reports from [facility]. 4.Additional recommendations pending completion of above database. cc: Paulo Isbell MD [facility]
[2018-10-29] MEDS: DUONEB (A & A) INH SCH ×7 (00:02→23:20)
[2018-10-29] MEDS: XANAX PO PRN ×3 (02:02→20:29)
[2018-10-29] MEDS: SOLU-MEDROL IV SCH ×3 (04:15→20:29)
[2018-10-29] MEDS: PERCOCET-5 PO PRN ×2 (06:09)
[2018-10-29] MEDS: ZOSYN 3.375 GM in NS 50 ML IV SCH ×5 (06:15→17:50)
[2018-10-29 06:37] LABS: BASO# 0.02 X1000 (0.0-0.2); BASO% 0.3 % (0.0-0.8); HEMATOCRIT 37.7 % (37.0-47.0); IMM GRAN# 0.38 X1000 (0.0-0.04); IMM GRAN% 5.6 % (0.0-0.5); LYMPH% 7.4 % (20.5-51.1); MCH 28.2 PG (27-31); MCHC 31.8 g/dL (33-37); MCV 88.5 FL (81-99); MONO# 0.43 X1000 (0.11-0.59); MONO% 6.4 % (1.7-9.3); MPV 9.6 FL (7.4-10.4); NEUT# 5.41 X1000 (1.4-6.5); NEUT% 80.3 % (42.2-75.2); PLT 286 X1000 (130-400); RBC 4.26 XMIL (4.2-5.4); WBC 6.74 X1000 (4.8-10.8)
--- NOTE | 2018-10-29 06:55 | Diag Imaging Result Doc PS360 ---
EXAM: CHEST-PORTABLE HISTORY: dyspnea TECHNIQUE: Portable chest single view COMPARISON: 10/25/2018 FINDINGS: Poor inspiratory effort. There is vascular distention with bilateral infiltrates. No cardiomegaly. No pleural effusions identified. IMPRESSION: Mild interval worsening. Electronically signed by Devin Lopez 10/29/2018 6:52 AM
[2018-10-29 06:58] LABS: AGAP 13; ALB/GLOB RATIO 0.9; ALBUMIN 2.9 g/dL (3.5-5.0); ALKALINE PHOSPHATASE 87 U/L (32-104); BUN 34 mg/dL (8-22); CALCIUM 8.7 mg/dL (8.8-10.2); CHLORIDE 103 mmol/L (98-107); COSMO 299; CREATININE 0.6 mg/dL (0.5-0.9); ESTIMATED GFR > 60; GLUCOSE 221 mg/dL (70-104); GOT 21 U/L (10-30); GPT 15 U/L (10-36); POTASSIUM 4.6 mmol/L (3.5-5.1); SODIUM 143 mmol/L (136-145); TCO2 27 mmol/L (25-35); TOTAL BILIRUBIN 0.26 mg/dL (0.20-1.00); TOTAL PROTEIN 6.3 g/dL (6.3-8.3)
[2018-10-29 07:14] LABS: LYMPHS 12 % (21-51); MONO 4 % (1-9); SEGS 84 % (42-75)
[2018-10-29] MEDS: PROTONIX IV SCH (09:16)
[2018-10-29] MEDS: SODIUM CHLORIDE 0.9% INJ SCH (09:16)
[2018-10-29] MEDS: ZITHROMAX PO SCH (09:18)
[2018-10-29] MEDS: NEURONTIN PO SCH ×3 (09:18→20:29)
[2018-10-29] MEDS: NICODERM PATCH TD SCH (09:19)
[2018-10-29] MEDS: CHLORASEPTIC SPRAY MT PRN (12:12)
[2018-10-29] MEDS: PERCOCET-10 PO PRN ×2 (12:34→18:31)
--- NOTE | 2018-10-29 13:12 | PROGRESS NOTE ---
DATE: 10/29/2018 SUBJECTIVE: This patient is still complaining of generalized pain, weakness and shortness of breath. As per the patient, she has been declining since July 2018. No family members at the bedside, but yesterday, I explained to the family the whole situation, including her daughter. We have requested some records from [facility]. Pulmonary Department following this patient closely. OBJECTIVE: Vital Signs: Temperature 97.9, pulse 54, respiratory rate 16, blood pressure 133/55, oxygen saturation 100% on 4 L of nasal cannula. HEENT: Head normocephalic. No trauma. PERRLA. Neck: Supple. No JVD. No masses. Central trachea. Chest: Decreased breath sounds globally with coarse breath sounds, crackles and rhonchi, mostly at the bases. Cardiovascular: RRR. Abdomen: Soft, nontender, nondistended. No hepatosplenomegaly. Extremities: No edema. No clubbing. No cyanosis. Decreased muscle mass. Neurological: The patient is alert and oriented x3. No focal deficits, but generalized weakness. LABORATORY: WBC 6.7, hemoglobin 12, hematocrit 37.7, platelets 286. Sodium 143, potassium 4.6, chloride 103, bicarbonate 27, BUN 34, creatinine 0.6, glucose 221. Calcium 8.7, albumin 2.9. Immunoglobulin level is normal. ASSESSMENT AND PLAN: 1. Respiratory failure, likely secondary to pneumonia and history of chronic obstructive pulmonary disease. She does have some infiltrates that are more prominent at the bases, will continue with steroids, antibiotics, bronchodilator, pulmonary toilet and oxygen supplementation, pulmonary department on board. 2. Bilateral lower lobe pneumonia, as above. Continue with same treatment. 3. Chronic obstructive pulmonary disease. She is not wheezing today. I will decrease the dose of the IV steroids from 60 every 8 hours to 40 every 8 hours and I will continue tapering this medication down slowly. 4. Severe protein calorie malnutrition. Continue with her diet. I will consult the dietitian to evaluate this patient. 5. Chronic low back pain. As per the patient, she has been taking Percocet 10 at home. She has been getting Percocet 5 during this hospitalization which I will increase. 6. Anxiety. Continue with Xanax as needed. cc: Ronaldo Garza MD
[2018-10-29] MEDS: VANCOMYCIN 1 GM/NS 1 GM/250 ML IVPB IV SCH (17:56)
--- NOTE | 2018-10-29 19:58 | INFECTIOUS DISEASE PROGRESS NO ---
DATE: 10/29/2018 PRESENT ILLNESS: The patient has a bilateral pneumonia. MEDICATIONS: The patient is receiving a combination of azithromycin, vancomycin, and Zosyn. PHYSICAL EXAMINATION: Vital Signs: Temperature is 98.1 degrees, pulse 62, respirations 21, blood pressure 133/64. General: This is a chronically ill and somewhat malnourished-appearing elderly female. She actually though looks better than she did yesterday. She did not cough the whole time I was in the room and she is eating better and she herself said she is feeling better. Head, eyes, ears, nose, and throat: She can hear my spoken words and see near objects. She does not have any white patches on her tongue. Neck: No meningismus. Lungs: Clear to auscultation. Cardiovascular: Regular heart rate. Abdomen: Soft and nontender. Neurologic: Patient is awake. She can move her extremities. She does not have a tremor. DIAGNOSTIC STUDIES: The patient's chest x-ray shows bilateral infiltrates. Swab for influenza was negative. Blood cultures are negative. Creatinine is 0.6, GFR is greater than 60. CBC shows a white count of 6740, hemoglobin 12, and platelet count 286,000. IgG level is 1085, IgA is 243, and IgM is 104. ASSESSMENT AND PLAN: The patient has severe pneumonia. It looks like it is going to be bacterial in that she has so quickly gotten better just with 1 day's worth of treatment. My plan is to continue the current antibiotics. PATIENT'S COMORBIDITIES: 1. She has very severe chronic obstructive pulmonary disease COPD due to her cigarette smoking. 2. She also is elderly. cc: Josh Gant MD
--- NOTE | 2018-10-29 20:50 | PULMONOLOGY PROGRESS NOTE ---
DATE: 10/29/2018 SUBJECTIVE: Patient reports she feels a little bit better today. Her shortness of breath has diminished. OBJECTIVE: Vital Signs: The patient has been afebrile. Blood pressure 133/64, heart rate 62, respiratory rate 21, oxygen saturation 99%. HEENT: Pupils are equal and reactive. Oropharynx is clear. Neck: Supple. Chest: Reveals decreased breath sounds, both lung bases. Cardiac exam: S1-S2. Abdomen: Soft and without hepatosplenomegaly. Extremities: Without edema. LABORATORIES: Pathology report from [facility] dated 08/16/2018 is reviewed. There is a pathology sample from the posterior segment of the right upper lobe. No evidence of malignancy. Extensive granulomatous interstitial pneumonitis, fibrosis and focal infarction. 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 No evidence of vasculitis to suggest Neha's. Inflammatory pattern is nonspecific would but would be consistent with a connective tissue disease pneumonitis. Granulomas are not well formed to suggest sarcoid. White blood count 6.74, hemoglobin 12.0, platelet count 286,000. Sodium 143, potassium 4.6, chloride 103, bicarbonate 27, BUN 34, creatinine 0.6. IMPRESSION: A 67-year-old with: 1. Severe chronic obstructive pulmonary disease. 2. Progressive parenchymal infiltrates. 3. Hypoxemic respiratory failure. 4. Ongoing tobacco use. 5. Abnormal weight loss with biopsy last fall revealing granulomatous inflammation with negative special stains and a pattern consistent with lymphocytic interstitial pneumonitis. RECOMMENDATIONS: 1. Strongly encourage patient to discontinue tobacco. 2. Recommend trial of steroids. Would discharge patient on prednisone 20 mg per day with a followup CT scan in 4 to 6 weeks. 3. Consider discharge with a 2 week course of oral antibiotics such as ciprofloxacin and doxycycline. PROGNOSIS: Overall prognosis is guarded. cc: Paulo Isbell MD
[2018-10-30] MEDS: PERCOCET-10 PO PRN ×4 (00:25→19:51)
[2018-10-30] MEDS: ZOSYN 3.375 GM in NS 50 ML IV SCH ×4 (00:25→18:10)
[2018-10-30] MEDS: DUONEB (A & A) INH SCH ×6 (03:52→23:33)
[2018-10-30] MEDS: XANAX PO PRN ×3 (04:14→19:51)
[2018-10-30] MEDS: SOLU-MEDROL IV SCH ×3 (04:15→21:30)
[2018-10-30 07:15] LABS: BASO# 0.04 X1000 (0.0-0.2); BASO% 0.5 % (0.0-0.8); HEMATOCRIT 37.9 % (37.0-47.0); HEMOGLOBIN 12.3 g/dL (12.0-16.0); IMM GRAN# 0.81 X1000 (0.0-0.04); IMM GRAN% 10.9 % (0.0-0.5); LYMPH# 0.65 X1000 (1.2-3.4); LYMPH% 8.7 % (20.5-51.1); MCH 28.5 PG (27-31); MCHC 32.5 g/dL (33-37); MCV 87.7 FL (81-99); MONO# 0.55 X1000 (0.11-0.59); MONO% 7.4 % (1.7-9.3); MPV 9.4 FL (7.4-10.4); NEUT# 5.41 X1000 (1.4-6.5); NEUT% 72.5 % (42.2-75.2); PLT 307 X1000 (130-400); RBC 4.32 XMIL (4.2-5.4); RDW 15.8 % (11.5-14.5); WBC 7.46 X1000 (4.8-10.8)
[2018-10-30 07:34] LABS: AGAP 11; ALBUMIN 2.9 g/dL (3.5-5.0); ALKALINE PHOSPHATASE 78 U/L (32-104); BUN 27 mg/dL (8-22); CHLORIDE 98 mmol/L (98-107); COSMO 284; CREATININE 0.5 mg/dL (0.5-0.9); ESTIMATED GFR > 60; GLUCOSE 151 mg/dL (70-104); GOT 15 U/L (10-30); GPT 14 U/L (10-36); MAGNESIUM 2.2 mg/dL (1.5-2.7); POTASSIUM 4.7 mmol/L (3.5-5.1); SODIUM 138 mmol/L (136-145); TCO2 29 mmol/L (25-35); TOTAL BILIRUBIN 0.28 mg/dL (0.20-1.00); TOTAL PROTEIN 5.9 g/dL (6.3-8.3)
[2018-10-30 07:43] LABS: LYMPHS 8 % (21-51); MONO 6 % (1-9); SEGS 74 % (42-75)
[2018-10-30] MEDS: NICODERM PATCH TD SCH (08:42)
[2018-10-30] MEDS: NEURONTIN PO SCH ×3 (08:42→21:22)
[2018-10-30] MEDS: ZITHROMAX PO SCH (08:43)
[2018-10-30] MEDS: SODIUM CHLORIDE 0.9% INJ SCH (09:47)
[2018-10-30] MEDS: PROTONIX IV SCH (09:47)
--- NOTE | 2018-10-30 15:59 | PROGRESS NOTE ---
DATE: 10/30/2018 SUBJECTIVE: Patient reports breathing better. Denies any shortness of breath. Denies any fever or chills. OBJECTIVE: Vital Signs: Temperature 98.8 degrees, heart rate 66, respiratory rate 18, blood pressure 123/69, O2 saturation 98% on 4 L nasal cannula. General Examination: This is a chronically ill-appearing and very cachectic 67-year-old female, with a strong smell of tobacco, lying in bed, in no acute distress. HEENT: Head is normocephalic and atraumatic. Neck: No JVD noted. No carotid bruits. No lymphadenopathy. No thyromegaly. Cardiovascular: S1, S2 heard. No murmurs, gallops, or rubs. Regular rate and rhythm. Respiratory: Decreased breath sounds globally with minimal coarse breath sounds in both bases as well as wheezing. Patient is not using any accessory muscles or having work of breathing. Abdomen: Soft. Nontender to palpation. Bowel sounds present. No organomegaly. Extremities: Muscle wasting noted in upper and lower extremities. No clubbing or cyanosis noted. Neurological: Patient is alert and oriented x3. Moves 4 extremities. LABORATORY DATA: Reviewed. ASSESSMENT AND PLAN: 1. Acute respiratory failure secondary to pneumonia/chronic obstructive pulmonary disease (COPD) exacerbation. Patient continues to be on vancomycin, azithromycin, and Zosyn. Clinically, she reports doing fine. Patient reports using 6 L of oxygen at home. The patient is receiving here in the hospital methylprednisolone 40 mg IV q.8 h. Also vancomycin, Zosyn, and breathing treatments every 4 hours as well. At this point, we will continue with the same management. The notes from Dr. Isbell from yesterday report in the biopsy it reveals lymphocytic interstitial pneumonitis so he recommends to send this patient with antibiotics and steroids oral. We will talk to Dr. Gant to see what medication we can use from his standpoint plus steroid as Dr. Isbell recommended. I think she can be discharged tomorrow. 2. Bilateral lower lobe pneumonia. As we mentioned above. 3. Chronic obstructive pulmonary disease exacerbation. Patient is not wheezing today. We will continue with the same management. 4. Severe protein calorie malnutrition. We will continue following recommendations from dietitian. 5. Chronic low back pain. We will continue with Percocet. 6. Anxiety disorder. We will continue with Xanax. DISPOSITION: I think tomorrow patient can be discharged. We will talk with Dr. Isbell and Dr. Gant to see what antibiotics he is going to receive at discharge. cc: Jamie Anguiano MD
[2018-10-30] MEDS: VANCOMYCIN 1 GM/NS 1 GM/250 ML IVPB IV SCH (16:30)
--- NOTE | 2018-10-30 18:35 | INFECTIOUS DISEASE PROGRESS NO ---
DATE: 10/30/2018 PRESENT ILLNESS: Ms. Swanson is being treated for bilateral pneumonia. There also appears to be the start of an oral candidiasis with complaints of pharyngitis and mild white patchy areas in the back of the oral vestibule. MEDICATIONS: She is receiving Zosyn 3.375 g IV every 6 hours, vancomycin IV per pharmacy dosing, Zithromax 500 mg by mouth daily, and IV Solu-Medrol 40 mg every 8 hours. PHYSICAL EXAMINATION: Vital Signs: Temperature is 98 degrees, pulse rate 66, respiratory rate 18, blood pressure 123/69, O2 saturation 98% on 4 L nasal cannula. General: This is a chronically ill, elderly, thin female. She is lying in bed currently, in no acute distress. HEENT: She is atraumatic, normocephalic. Oral mucous membranes are pink and moist. There are some mild white patches noted to the back of the oral vestibule and she is complaining of some pharyngitis. Conjunctivae are pink. Neck: Supple. Trachea is midline. Cardiovascular: Heart rate and rhythm are regular. Normal sinus rhythm on the monitor. Radial and pedal pulses are +1 bilaterally. Respiratory: Lung sounds are diminished bilaterally with some faint rales noted in the bases. Abdomen: Soft, flat, nontender. Bowel sounds are active. Neurologic: She is awake, alert, and oriented and moving independently in the bed without difficulty. LABORATORY AND X-RAY: Today her white count is 7.46, hemoglobin 12.3, platelet count 307,000. Creatinine is 0.5. Estimated GFR is greater than 60. Total bilirubin is 0.28, AST 15, ALT 14, alkaline phosphatase 78. No imaging reports today. ASSESSMENT AND PLAN: Ms. Swanson is being treated for bilateral pneumonia. She states she is feeling much better and is hoping to go home. For now, we will continue her Zithromax, vancomycin, and Zosyn as ordered since she is continuing to improve. If she is discharged to go home tomorrow, we have provided two prescriptions on the chart, which include clindamycin 300 mg by mouth every 8 hours and Levaquin 500 mg by mouth daily; both of these are for a total of 2 weeks. We plan to see her back in our office in 2 weeks. I talked to the patient about stopping Zanaflex while she is receiving the Levaquin since those medications can interact. She states that stopping the Zanaflex at home is not a problem. When we see her back in the office in 2 weeks we will repeat her chest x-ray to determine if she will need any further antibiotics. These plans have been discussed with and recommended by Dr. Gant. COMORBIDITIES: For Ms. Swanson include that she is elderly with cigarette smoking and severe COPD. Dictated by ELA Loving for Josh Gant MD This chart was documented by, ELA Loving and accurately reflects the services performed, treatment plan and medical decisions as attested by the providers signature Josh Gant MD. cc: Josh Gant MD [facility]
[2018-10-30] MEDS: MUCINEX PO SCH (21:22)
[2018-10-30] MEDS: MYCELEX TROCHE PO SCH (21:29)
--- NOTE | 2018-10-30 22:50 | PULMONOLOGY PROGRESS NOTE ---
DATE: 10/30/2018 SUBJECTIVE: Patient is awake, alert, and conversant. She reports her breathing and her appetite have improved. Blood pressure 123/69, heart rate 66, respiratory rate 18, oxygen saturation 98% on 4 L per nasal cannula.HEENT: Pupils are equal and reactive. Oropharynx is clear. Neck: Is supple. Chest: Reveals good air entry bilaterally with crackles in both lung bases. Cardiac: S1-S2. Abdomen: Soft without hepatosplenomegaly. Extremities: Are without edema. LABORATORIES: No new microbiology data. White blood count 7.46, hemoglobin 12.3, platelet 307,000. Connective tissue profile/cascade negative. IMPRESSION: A 67-year-old with 1. Severe chronic obstructive pulmonary disease. 2. Ongoing tobacco use. 3. Hypoxemic respiratory failure. 4. Progressive pulmonary infiltrates with prior biopsy in [facility] which revealed lymphocytic interstitial pneumonitis with negative special stains. RECOMMENDATION: 1. Strongly encourage patient to discontinue tobacco use. 2. Initiate trial of steroids. 3. Follow up CT scan in 4 to 6 weeks. 4. Consider outpatient course of antibiotics such as ciprofloxacin, doxycycline. cc: Paulo Isbell MD
[2018-10-31] MEDS: ZOSYN 3.375 GM in NS 50 ML IV SCH ×3 (00:08→11:15)
[2018-10-31] MEDS: PERCOCET-10 PO PRN ×2 (01:12→11:27)
[2018-10-31] MEDS: MYCELEX TROCHE PO SCH ×2 (03:30→07:38)
[2018-10-31] MEDS: DUONEB (A & A) INH SCH ×3 (04:15→11:41)
[2018-10-31] MEDS: SOLU-MEDROL IV SCH ×2 (05:02→12:10)
[2018-10-31] MEDS: XANAX PO PRN ×2 (05:09→14:08)
[2018-10-31] MEDS: NICODERM PATCH TD SCH ×2 (07:38→10:28)
[2018-10-31] MEDS: ZITHROMAX PO SCH ×2 (07:39→10:28)
[2018-10-31] MEDS: NEURONTIN PO SCH ×2 (07:39→10:28)
[2018-10-31] MEDS: MUCINEX PO SCH ×2 (07:39→10:28)
[2018-10-31 08:23] VITALS: BP 140/79
--- NOTE | 2018-10-31 08:40 | INFECTIOUS DISEASE PROGRESS NO ---
DATE: 10/31/2018 ADDENDUM REPORT: The patient has an allergy to Keflex; however, she has been receiving Zosyn in the hospital, and therefore, she should tolerate Augmentin as well at home. The patient had immunoglobulin levels drawn. The IgG level was 1850 and the IgA was 243. Since the patient's immunoglobulin levels are in the normal range, she does not have any reason for getting gammaglobulin injections. cc: Josh Gant MD
--- NOTE | 2018-10-31 08:41 | Diag Imaging Result Doc PS360 ---
EXAM: CHEST-2 VIEWS 10/31/2018 HISTORY: abnormal exam TECHNIQUE: PA and lateral chest COMMENT: There is interstitial opacity with Cierra B lines bilaterally. The lungs are better expanded than on 10/29/2018 and generally there is decreased opacity in both lung staley. There has been marked improvement in the alveolar opacities present on 10/25/2018. IMPRESSION: Improved pulmonary edema. Electronically signed by Quoc Lawrence 10/31/2018 8:39 AM
--- NOTE | 2018-10-31 08:43 | INFECTIOUS DISEASE PROGRESS NO ---
DATE: 10/31/2018 PRESENT ILLNESS: The patient has bilateral pneumonia. She also appears to have oral candidiasis. MEDICATIONS: The patient now is receiving Zosyn, Zithromax and Solu-Medrol. PHYSICAL EXAMINATION: Vital Signs: Temperature is 98.1, pulse 74, respirations 20, blood pressure 112/63. General: This is a chronically ill-appearing, elderly female. She is getting her strength back, and she told me she feels much better. She is in no acute distress. Head, eyes, ears, nose, and throat: She has a few white patches on her tongue. She can hear my spoken words and see near objects. Lungs: Clear to auscultation. Cardiovascular: Heart rate is regular. Abdomen: Soft and nontender. Neurologic: Patient is alert. She can move her extremities. There is no tremor. Patient walked without difficulty. LAB AND X-RAY: The patient's CBC shows a white count of 7460, hemoglobin 12.2, and platelet count 307,000. Creatinine 0.5. GFR is greater than 60. Liver function studies are normal. Blood cultures and swab for influenza are both negative. IgG is 1085, IgA is 243. There is no new x- ray today. ASSESSMENT AND PLAN: Patient has bilateral pneumonia. She feels much improved. I am going to continue her current intravenous antibiotics, but today I discussed with the patient and Dr. Hummel, and we all agree that the patient could go home today. I, through the computer, brought up prescriptions for Augmentin, ciprofloxacin and Mycelex troches. They should last the patient for 2 weeks and I have requested the patient have an appointment in my office at 2 weeks, at which time the patient will be examined and also will repeat the patient's chest x-ray. The patient was urged to stop smoking cigarettes. COMORBIDITIES: The patient is elderly. She also smokes cigarettes. She has severe COPD. cc: Josh Gant MD
[2018-10-31] MEDS ORDERED: ZANAFLEX PO SCH (09:00)
[2018-10-31] MEDS: PROTONIX IV SCH (09:18)
[2018-10-31] MEDS: SODIUM CHLORIDE 0.9% INJ SCH (09:18)
--- NOTE | 2018-10-31 13:42 | PULMONOLOGY PROGRESS NOTE ---
DATE: 10/31/2018 SUBJECTIVE: Patient is awake, alert and conversant. She reports her breathing has significantly improved. She has minimal sputum production. OBJECTIVE: General: The patient is awake, alert and conversant. Vital Signs: BP 140/79, heart rate 64, respiratory rate 18, oxygen saturation 91% on room air. HEENT: Pupils are equal and reactive. Oropharynx clear. Neck: Supple. Chest: Reveals good air entry with prolonged expiratory phase and crackles in the lung bases. Cardiac exam: S1, S2. Abdomen: Scaphoid and soft. Extremities: Without edema. LABORATORIES: Chest x-ray reveals decreasing infiltrates in both lung staley with marked improvement when compared to 10/25/2018. IMPRESSION: The patient is a 67-year-old with: 1. Severe chronic obstructive pulmonary disease. 2. Ongoing tobacco use. 3. Acute hypoxemic respiratory failure with progressive infiltrates/pneumonia. Prior biopsies at [facility] did receive lymphocytic interstitial pneumonitis. RECOMMENDATION: 1. Agree with discharge today. 2. Strongly encourage discontinuation of oral tobacco use. 3. Agree with antibiotics as outlined by Dr. Josh Gant. 4. Recommend three week steroid trial with followup CT scan in 4 to 6 weeks. She can be evaluated in my office if necessary. cc: Paulo Isbell MD
[2018-10-31] MEDS ORDERED: PNEUMOVAX 23 IM ONE (13:55)
--- NOTE | 2018-10-31 15:05 | DISCHARGE SUMMARY ---
ADMISSION DATE: 10/26/2018 DISCHARGE DATE: 10/31/2018 CONSULTATIONS: 1. Dr. Paulo Isbell with Pulmonology. 2. Dr. Josh Gant with Infectious Disease. PERTINENT PROCEDURES: Chest CT: Extensive multilobar bilateral infiltrates consistent with bronchopneumonia, COPD, mild cardiomegaly. DISCHARGE DIAGNOSES: 1. Acute respiratory failure secondary to pneumonia and chronic obstructive pulmonary disease exacerbation. The patient has been on broad-spectrum antibiotics. Clinically, she is improved and will be discharged home with her son and home O2 and home health. 2. Severe chronic obstructive pulmonary disease with exacerbation, with ongoing tobacco use. She was followed by Pulmonology. She will continue on a three week steroid trial , recommended per Pulmonology and do a followup CT scan in 4 to 6 weeks and be evaluated in Dr. Isbell's office if necessary. 3. Ongoing tobacco use. Patient has been encouraged daily to discontinue the use of tobacco. 4. Multilobar pneumonia consistent with bronchopneumonia. The patient has been followed by Infectious Disease, as well as Pulmonary. She will continue on antibiotics per Dr. Gant. She will be going on Augmentin, ciprofloxacin, and Mycelex Troches, and follow up with Dr. Gant in 2 weeks with a repeat chest x-ray. 5. Severe protein calorie malnutrition. The patient has been visited by the dietitian. Will need to continue to follow those recommendations. 6. Chronic low back pain. Continue Percocet. 7. Anxiety disorder. Continue with Xanax. HOSPITAL COURSE: Briefly, Ms. Swanson is a 67-year-old female who has a past medical history of COPD, chronic hypoxemic respiratory failure. Was noted to have a pulmonary nodule by her report and referred to [facility] this past fall. She was evaluated by Dr. Cardona and underwent a robotic surgery for a lung biopsy in July. She was released from Dr. Reich's clinic and was to follow up with a jointer machine operator locally. She had not done so at the time of her admission. She reported a weight loss of 20 pounds over the past year. She came to the ED for progressive shortness of breath with productive sputum, intermittent chills, decreased appetite with ongoing weight loss. She was again noted to be in respiratory failure due to her COPD exacerbation, as well as multilobar pneumonia. She was initiated on IV steroids , IV antibiotics, bronchodilators, aggressive pulmonary toilet and continued supplemental O2. She was evaluated by both Pulmonary and Infectious Disease. Antibiotics were switched as appropriate. She will be discharged home on p.o. antibiotics under the direction of Dr. Josh Gant and will follow up with him in his office in 2 weeks for a repeat chest x-ray. Dr. Isbell recommends a 3-week steroid trial and follow up with a CT scan in 4 to 6 weeks. He would be more than happy to follow up with her in the office for her local jointer machine operator. VITAL SIGNS: At time of discharge, temperature is 98.4 degrees, heart rate respirations 18, blood pressure 140/79, O2 was 91% on room air; however, patient maintains O2 at home. DISCHARGE DIET: Regular, with Ensure with each meal. DISCHARGE MEDICATIONS: 1. Naproxen 500 mg p.o. b.i.d. 2. Remeron 30 mg p.o. at bedtime. 3. Ventolin inhaler 2 puffs inhaled q.6 hours p.r.n. 4. Augmentin 500/125 each p.o. q.12 hours for 30 tablets. 5. Ciprofloxacin 250 mg p.o. q.12 hours for 30 tablets. 6. Mycelex Troches 10 mg to dissolve in mouth q.8 hours. 7. Advair Diskus 250/50 one puff inhaled RT b.i.d. 8. Gabapentin 400 mg p.o. t.i.d. 9. Mucinex 600 mg p.o. b.i.d. 10. NicoDerm patch 14 mg TD daily. 11. Percocet 7.5/325 1 tab p.o. q.8 hours p.r.n. 12. Prednisone 10 mg p.o. as directed in x 42 tablets. The patient is to take 3 tablets p.o. daily for a week, then 2 tablets p.o. daily for a week, then 1 tab p.o. daily for a week, then discontinue. FOLLOWUP: Ms. Swanson is being discharged home with her grandson and [employer]. She has a walker and home O2. She is to follow up with Dr. Josh Gant in 2 weeks. She is to take all antibiotics and steroids as directed. She is recommended to follow up with a CT scan in 3 to 4 weeks and continue to follow up with Dr. Isbell as an outpatient. She can return to the ED or call 911 for any worsening of symptoms. Dictated by ELA Madrid for Jamie Anguiano MD Addendum: Patient seen and examined by myself. Agree with ELA note. It reflects my assessment and plan. Patient is being discharged in stable condition to home. Strongly advised to stop smoking. cc: Jamie Anguiano MD MTDD
== END 2018-10-31 14:25 | disposition home health service (06) | DRG 193 ==
LOC: ED 18:32 → 4N 10-26 01:00 → SUATTDRO 10-26 01:00
PROVIDERS: ATTEND Internal Medicine
CPT/HCPCS: 71010; 71020; 71045; 71046; 71250; 80048; 80053; 81001; 82378; 82784; 83735; 83880; 84100; 84155; 84165; 84439; 84443; 84484; 85025; 85027; 86038; 86200; 86334; 86480; 87040; 87275; 87276; 87804; 90732; 93005; 93306; 94640; 94761; 96365; 96366; 96375; 97110; 97116; 97162; 97530; 99285; A9270; C9113; J1940; J1956; J2543; J2920; J2930; J3370; S0164

== ENCOUNTER 2018-12-13 08:26 | Inpatient (IN) ==
[2018-12-13] MEDS ORDERED: DUONEB (A & A) INH ONE (08:58)
[2018-12-13 09:22] LABS: ALLEN TEST NO; BE 0.8 mmoll (-3.0-3.0); BLOOD TYPE ARTERIAL; HCO3-(ACT) 25.4 mmoll (20.0-26.0); METHB 1.4 % (0.0-1.5); O2(CT) 17.8 mL/dL (15.0-23.0); O2HB 91.8 % (95.0-99.0); PCO2(98.6) 34 mmHg (35-45); PO2(98.6) 64 mmHg (60-100); SAMPLE BLOOD; SAO2 95.2 % (95.0-100.0); THB 13.8 g/dL (11.5-17.4); pH(98.6) 7.46 (7.35-7.45)
[2018-12-13 09:24] LABS: MODALITY CANNULA
[2018-12-13 09:42] LABS: BASO# 0.03 X1000 (0.0-0.2); BASO% 0.2 % (0.0-0.8); EOS# 0.01 X1000 (0.0-0.7); EOS% 0.1 % (0.0-10.0); HEMATOCRIT 41.6 % (37.0-47.0); HEMOGLOBIN 13.6 g/dL (12.0-16.0); IMM GRAN# 0.06 X1000 (0.0-0.04); IMM GRAN% 0.4 % (0.0-0.5); LYMPH# 0.87 X1000 (1.2-3.4); LYMPH% 5.5 % (20.5-51.1); MCH 29.2 PG (27-31); MCHC 32.7 g/dL (33-37); MCV 89.5 FL (81-99); MONO# 0.82 X1000 (0.11-0.59); MONO% 5.2 % (1.7-9.3); MPV 10.5 FL (7.4-10.4); NEUT# 14.08 X1000 (1.4-6.5); NEUT% 88.6 % (42.2-75.2); PLT 203 X1000 (130-400); RBC 4.65 XMIL (4.2-5.4); RDW 15.7 % (11.5-14.5); WBC 15.87 X1000 (4.8-10.8)
--- NOTE | 2018-12-13 10:12 | Diag Imaging Result Doc PS360 ---
EXAM: CHEST-PORTABLE 12/13/2018 HISTORY: cough TECHNIQUE: AP portable at 0910 COMMENT: There are alveolar opacities in both lower lung staley which were not present on 11/19/2018. IMPRESSION: Pulmonary edema and/or pneumonia. Electronically signed by Quoc Lawrence 12/13/2018 10:10 AM
[2018-12-13 10:41] LABS: AGAP 14; ALB/GLOB RATIO 1.5; ALBUMIN 3.8 g/dL (3.5-5.0); ALKALINE PHOSPHATASE 103 U/L (32-104); BUN 21 mg/dL (8-22); CALCIUM 8.7 mg/dL (8.8-10.2); CHLORIDE 103 mmol/L (98-107); COSMO 287; CREATININE 0.6 mg/dL (0.5-0.9); ESTIMATED GFR > 60; GLUCOSE 144 mg/dL (70-104); GOT 14 U/L (10-30); GPT 5 U/L (10-36); POTASSIUM 4.2 mmol/L (3.5-5.1); SODIUM 141 mmol/L (136-145); TCO2 24 mmol/L (25-35); TOTAL BILIRUBIN 0.73 mg/dL (0.20-1.00); TOTAL PROTEIN 6.4 g/dL (6.3-8.3)
[2018-12-13] MEDS ORDERED: LEVAQUIN 500 MG/D5W 500 MG/100 ML IVPB IV SCH (11:30)
--- NOTE | 2018-12-13 11:30 | EKG Report ---
Test Performed on : 12/13/2018 08:35:33 AM Test Reason : ED. NO EKG ORDER FOR MUSE Blood Pressure : / mmHG Vent. Rate : 111 BPM Atrial Rate : 111 BPM P-R Int : 124 ms QRS Dur : 072 ms QT Int : 326 ms P-R-T Axes : 070 061 001 degrees QTc Int : 443 ms Sinus tachycardia. Possible Anterior infarct (cited on or before 19-JUL-2010) Abnormal ECG When compared with ECG of 25-OCT-2018 19:15, (Unconfirmed) T wave inversion now evident in Anterior leads Unconfirmed Result
[2018-12-13] MEDS ORDERED: MORPHINE IV ONE (12:40)
[2018-12-13] MEDS ORDERED: ZOFRAN IV ONE (12:40)
--- NOTE | 2018-12-13 13:27 | PROVIDER DOCUMENTATION ---
This chart was entered by Shruti Amor Scribe, acting as scribe for Gayatri Flood MD. HPI-Respiratory General - General Chief Complaint: Shortness of Breath Stated Complaint: sob Time Seen by Provider: 12/13/18 08:42 Source: patient, EMS (first response) Allergies/Adverse Reactions: Patient Allergies Allergy/AdvReac Type Severity Reaction Status Date / Time cephalexin monohydrate * Allergy SWELLING Verified 03/07/18 21:22 [From Keflex] Home Medications: Home Medication List Medication Instructions Recorded Confirmed Last Taken Type Naproxen 500 mg PO BID 09/16/17 10/27/18 09/15/17 History Albuterol Sulfate Inhaler 2 puff INH Q6H PRN PRN 30 Days #1 03/10/18 10/27/18 Unknown Rx [Ventolin Hfa] inhaler Fluticasone/Salmet 250/50 INH 1 puff INH RTBID 30 Days #1 inhaler 03/10/18 10/27/18 Unknown Rx [Advair 250/50 Diskus] Guaifenesin E.r. [Mucinex] 600 mg PO BID #60 tab 03/10/18 10/27/18 Unknown Rx Amoxicillin/Potassium Clav 1 ea PO Q12H #30 tab 10/31/18 Unknown Rx [Augmentin 500-125 Tablet] Ciprofloxacin HCl [Cipro] 250 mg PO Q12H #30 tab 10/31/18 Unknown Rx Clotrimazole [Mycelex Enriqueta] 10 mg .SEE ORDER Q8H #45 enriqueta 10/31/18 Unknown Rx Gabapentin 400 mg PO TID #90 cap 10/31/18 Unknown Rx Mirtazapine [Remeron] 30 mg PO QHS #90 tab 10/31/18 Unknown Rx Nicotine Patch [Nicoderm Patch] 14 mg TD DAILY patch.td24 10/31/18 Unknown Rx Oxycodone HCl/Acetaminophen 1 tab PO Q8H PRN PRN #20 tab 10/31/18 Unknown Rx [Percocet 7.5-325 mg Tablet] Prednisone 10 mg PO DIRECTED #42 tab 10/31/18 Unknown Rx - History of Present Illness-Resp Nature of Presenting Problem: 68 yowf presents to the ed via ems (first response) with c/o sob and pain. pt sts ran out odf respiratory and pain medication 5 days prior. pt has chronic productive cough and sts she stopped smoking 1 week prior. pt is in mild distress on exam and cane speak in 3-4 word sentences. pt has copd Quality of Pain: reports: fullness, pressure Severity in ED: reports: moderate Onset/Duration: reports: 5 days ago Timing: reports: still present, intermittent, getting worse Context: reports: out of meds Exposure: reports: unknown cause Cough Quality/Degree: reports: moderate (chronic), productive cough (yellow/white) Episode Frequency: chronic episodes Current Respiratory Medication Therapy: Initiated see nurses note Modifying Factors: improves with: albuterol nebulizer, oxygen, sitting upright. worse with: exertion, coughing, lying down Associated Symptoms: reports: chest pain/soreness, cough, hurts to breathe, shortness of breath. denies: fever/chills Similar Symptoms Previously?: Yes Recently seen or treated by another doctor?: No Review of Systems - Adult - REVIEW OF SYSTEMS - ADULT Constitutional: denies: chills, fever Eyes: reports: no symptoms reported Ears, Nose, Mouth & Throat: reports: no symptoms reported Cardiovascular: reports: see HPI, chest pain (with sob only). denies: palpitations, syncope Respiratory: reports: see HPI, chronic cough, shortness of breath, wheezing Gastrointestinal: denies: abdominal pain, diarrhea, nausea, vomiting Genitourinary: reports: no symptoms reported Musculoskeletal: denies: back pain, neck pain Integumentary: reports: no symptoms reported Neurological: denies: dizziness/vertigo, headache/migraines Psychiatric: reports: no symptoms reported Endocrine: reports: no symptoms reported Hematologic/Lymphatic: reports: no symptoms reported Allergic/Immunologic: reports: no symptoms reported All Other Systems: Reviewed and Negative Past History - Adult - PAST MEDICAL HISTORY-ADULT Review of Records: reports: Old Records Reviewed, Nursing Assessment Review, M edications Reviewed, Social history reviewed & non-contributory. Major Childhood Illnesses: reports: denies history Cardiovascular: reports: denies history Respiratory: reports: COPD Gastrointestinal: reports: denies history Obstetrical/Gynecological: reports: denies history Genitourinary: reports: denies history Musculoskeletal: reports: arthritis, chronic pain, neck/back injury Hand Dominance: Right Handed Neurological: reports: denies history Psychiatric: reports: denies history Endocrine/Immune: reports: denies history Other Conditions: reports: denies history - PRIOR SURGERIES/PROCEDURES Surgical/Procedure History: reports: hysterectomy - IMMUNIZATION STATUS Childhood Immunizations: See Nurse Assessment Flu Vaccine: See Nurse Assessment - FAMILY HISTORY Family History: reviewed, not pertinent - SOCIAL HISTORY Smoking: quit less than 1 year (quit 1 week prior) Substance Use: denies Living Situation: family Physical Exam-General - CONSTITUTIONAL General Appearance: alert, moderate distress, thin. negative: appears well - EYES Eyes: PERRL/EOMI, pink conjunctivae - HEAD, EARS, NOSE, MOUTH & THROAT HENMT: moist mucous membranes, dental decay - NECK Neck: full range of motion, normal inspection - RESPIRATORY Respiratory: respiratory distress, decreased breath sounds, wheezing, increased rate (26) - CARDIOVASCULAR Cardiovascular: normal peripheral pulses, tachycardia (108) - GASTROINTESTINAL (ABDOMEN) Abdominal Exam: normal bowel sounds, non tender, soft - LYMPHATIC Lymphatic: no adenopathy - MUSCULOSKELETAL Back Exam: normal inspection, no CVA tenderness, no vertebral tenderness Extremity: normal range of motion, non-tender, normal gait, normal inspection - SKIN Integumentary: warm/dry, pallor - NEUROLOGIC Neurologic: grossly normal, no motor/sensory deficits - PSYCHIATRIC Psych/Mental Status: normal mood/affect, normal thought content, normal thought process, oriented x 3 Progress - PLAN OF CARE/RESULTS Progress/Plan/Lab Results: Vital Signs - 8 hr 12/13/18 08:35 12/13/18 08:37 12/13/18 08:39 Temperature 97.8 F Pulse Rate 111 H Respiratory Rate 28 H Blood Pressure 96/62 96/62 O2 Sat by Pulse Oximetry 91 L 94 L 93 L 12/13/18 08:40 12/13/18 08:50 12/13/18 09:22 Temperature Pulse Rate 109 H 109 H 110 H Respiratory Rate 22 23 24 Blood Pressure O2 Sat by Pulse Oximetry 94 L 93 L 95 Laboratory Results - last 24 hr 12/13/18 12/13/18 12/13/18 08:58 09:19 09:19 WBC 15.87 H D RBC 4.65 Hgb 13.6 Hct 41.6 MCV 89.5 MCH 29.2 MCHC 32.7 L RDW Std Deviation 15.7 H Plt Count 203 MPV 10.5 H Immature Gran % (Auto) 0.4 Neut % (Auto) 88.6 H Lymph % (Auto) 5.[address] % (Auto) 5.2 Eos % (Auto) 0.1 Baso % (Auto) 0.2 Immature Gran # (Auto) 0.06 H Neut # (Auto) 14.08 H Lymph # (Auto) 0.[address] # (Auto) 0.82 H Eos # (Auto) 0.01 Baso # (Auto) 0.03 Specimen Type ARTERIAL Sample Site R BRACHIAL pH 7.46 H pCO2 34 L pO2 64 HCO3 25.4 Base Excess 0.8 Oxyhemoglobin 91.8 L ABG O2 Sat (Calculated) 17.8 ABG O2 Saturation 95.2 ABG Carboxyhemoglobin 2.20 ABG Methemoglobin 1.4 Elkin Test NO A-a O2 Difference 150.0 Total Hemoglobin 13.8 Lactate 0.70 Liter Flow 4.0 Blood Gas Modality CANNULA FiO2 % 36.0 Sodium 141 Potassium 4.2 Chloride 103 Carbon Dioxide 24 L Anion Gap 14 BUN 21 Creatinine 0.6 Estimated GFR/1.73 m2 > 60 BUN/Creatinine Ratio 35 Glucose 144 H Calculated Osmolality 287 Calcium 8.7 L Total Bilirubin 0.73 AST 14 ALT 5 L Alkaline Phosphatase 103 Total Protein 6.4 Albumin 3.8 Globulin 2.6 Albumin/Globulin Ratio 1.5 Plasma Lactate 12/13/18 09:19 WBC RBC Hgb Hct MCV MCH MCHC RDW Std Deviation Plt Count MPV Immature Gran % (Auto) Neut % (Auto) Lymph % (Auto) Lane % (Auto) Eos % (Auto) Baso % (Auto) Immature Gran # (Auto) Neut # (Auto) Lymph # (Auto) Lane # (Auto) Eos # (Auto) Baso # (Auto) Specimen Type Sample Site pH pCO2 pO2 HCO3 Base Excess Oxyhemoglobin ABG O2 Sat (Calculated) ABG O2 Saturation ABG Carboxyhemoglobin ABG Methemoglobin Elkin Test A-a O2 Difference Total Hemoglobin Lactate Liter Flow Blood Gas Modality FiO2 % Sodium Potassium Chloride Carbon Dioxide Anion Gap BUN Creatinine Estimated GFR/1.73 m2 BUN/Creatinine Ratio Glucose Calculated Osmolality Calcium Total Bilirubin AST ALT Alkaline Phosphatase Total Protein Albumin Globulin Albumin/Globulin Ratio Plasma Lactate 1.0 Orders Category Date Time Status Saline Loc NOW Care 12/13/18 08:57 Active CHEST-PORTABLE [RAD] Stat Exams 12/13/18 08:57 Completed ABG [RESP] Routine Lab 12/13/18 08:58 Completed BLOOD CULTURE [BLDCUL] Stat Lab 12/13/18 09:15 Results BLOOD CULTURE [BLDCUL] Stat Lab 12/13/18 09:19 Ordered BNP [PRO B-NATRIURETIC PEPTIDE] Stat Lab 12/13/18 11:19 Uncollected CBC WITH DIFF [HEME] Stat Lab 12/13/18 09:19 Completed COMPREHENSIVE METABOLIC PANEL [CHEM] Stat Lab 12/13/18 09:19 Completed LACTATE, PLASMA [CHEM] Stat Lab 12/13/18 09:19 Completed Albuterol 2.5MG/Ipratrop 0.5MG [Duoneb (A & A)] Med 12/13/18 08:58 Discontinued 3 ml INH NOW ONE Levofloxacin 500 mg/D5w [Levaquin 500 mg/D5w] Med 12/13/18 11:30 Active 500 mg in 100 ml IV Q24H Aerosol Treatments Routine Oth 12/13/18 08:59 Completed Aerosol Treatments Stat Oth 12/13/18 08:59 Completed Pulse Oximetry Stat Oth 12/13/18 08:57 Completed Pulse Oximetry Stat Oth 12/13/18 08:58 Completed EKG [EKG] Stat Ther 12/13/18 08:30 Draft Result Diagrams: 12/13/18 09:19 12/13/18 09:19 - REASSESSMENT Reassessment #1 Time Reassessed: 11:16 (pt feels better) Status: improving - EKG 1 Time of EKG reading by physician:: 08:35 EKG Read and Signed by:: Gayatri Flood EKG Interpretation (*Must complete 3 of following elements*): Abnormal Rate: 111 Rhythm: sinus tachycardia [place]: normal QRS: normal NM Interval: normal ST Wave: normal Comments: possible anterior infarct, age undetermined - XRAY 1 XRAY: Bilateral XRAY Study: Chest Impression: See EMR Report (EXAM: CHEST-PORTABLE 12/13/2018 HISTORY: cough T ECHNIQUE: AP portable at 0910 COMMENT: There are alveolar opacities in both lower lung staley which were not present on 11/19/2018. IMPRESSION: Pulmonary edema and/or pneumonia. Electronically signed by Quoc Lawrence 12/13/2018 10:10 AM 12/13/18 1010 Interpreting Physician: Quoc Lawrence MD Dictated Date/Time: 12/13/18 1009 cc: Gayatri Flood MD; Junaid Levin) - CONSULTS/PCP/HOSPITALIST Notification #1 *Consult/PCP/Hospitalist*: hospitalist dr florez Time Discussed: 11:39 Consult Disposition: Admit Departure - Departure Date of Disposition Decision: 12/13/18 Time of Disposition Decision: 11:38 DIAGNOSIS: COPD exacerbation, Tobacco use disorder Pneumonia Qualifiers: Pneumonia type: due to unspecified organism Laterality: unspecified laterality Lung location: unspecified part of lung Qualified Code(s): J18.9 - Pneumonia, un specified organism Disposition: ADMITTED INPATIENT 09 Certified Medical Emergency: Emergent Condition: Stable Additional Freetext Instructions: ED Follow Up Instructions: You have been treated by a care provider in the Emergency Department. These instructions are being provided to you so you can have an understanding of how to care for yourself upon discharge. Upon discharge from the Emergency Department, you are responsible for making arrangements for follow-up care by a physician of your choice. Take all prescribed medications as directed. Return to the Emergency Department immediately for any new or worsening symptoms. You may call the Physician Referral phone number at [phone] to obtain a list of Physicians who are taking new patients. Referrals and Follow-Ups: Junaid Levin CRNP [Primary Care Provider] - - Critical Care Note This patient required my direct & personal management of CC.: Yes Attestation - Physician/ BONNY Attestation Patient care was provided by Advanced Practice Provider:: No The physician spent face to face time with patient:: Yes Advanced Practice Provider documentation review:: Supervising physician onsite and consulted in the evaluation and care of this patient. The physician did have a face to face encounter with the patient. This chart was documented by the indicated scribe, (Shruti Amor Scribe) and accurately reflects the services I performed and decisions made by me, Gayatri Flood MD, as attested by the provider's signature.
[2018-12-13] MEDS ORDERED: DUONEB (A & A) INH PRN (13:54)
[2018-12-13] MEDS ORDERED: ZOFRAN IV PRN (14:18)
[2018-12-13] MEDS: SOLU-MEDROL IV SCH ×2 (14:38→21:44)
[2018-12-13] MEDS: PERCOCET-5 PO PRN ×3 (14:39→21:45)
[2018-12-13] MEDS: LOVENOX SUBQ SCH (14:39)
--- NOTE | 2018-12-13 15:35 | HISTORY AND PHYSICAL ---
PRIMARY CARE PROVIDER: ELA Mcclure. CHIEF COMPLAINT: Shortness of breath, cough, and productive sputum. HISTORY OF PRESENT ILLNESS: Ms. Swanson carries a past medical history of severe COPD on home O2 at 4 L, acute on chronic respiratory failure secondary to COPD, ongoing tobacco use, severe protein calorie malnutrition, chronic low back pain, anxiety disorder, was discharged from our service on 10/31/2018 secondary to COPD exacerbation and multilobar pneumonia, followed by Dr. Gant. She reported she just started seeing her new clinician, Junaid Levin NP, in [place]. She states every time she is supposed to follow up with him, she is too sick to go to her appointment, so she ran out of all of her COPD medications 5 days prior. She has not followed with Dr. Gant. She believes that she was still supposed to be on some antibiotics. She reports she did quit smoking 5 days ago because of the progression of her shortness of breath. She has not really had an appetite. She will drink coffee and Coke throughout the day and will pick at her food. She has had an increase in her cough, increase in her sputum production that is yellow. She has had some low-grade temperatures as well as chills. She also reported some retrosternal chest pain that is nonradiating, not associated particularly with any increase in shortness of breath, nausea, vomiting, or diaphoresis, and did not note if it was around the intake of any meals. She does report she felt like she has had allergies over this past week and she did not have to go up on her home O2. Chest x-ray in the ED shows pulmonary edema and/or pneumonia. She has an elevated white count of 15. She will be admitted for COPD exacerbation and probable pneumonia. The patient does not have any history of heart failure but we will check a proBNP. We will continue to trend cardiac enzymes given her retrosternal chest pain. PAST MEDICAL HISTORY: 1. Severe COPD. 2. Recent admission for pneumonia in October 2012. 3. Chronic low back pain. 4. Ongoing tobacco abuse. 5. Protein calorie malnutrition. PAST SURGICAL HISTORY: 1. Back surgery. 2. Cholecystectomy. 3. Hysterectomy. SOCIAL HISTORY: She lives with her grandson. Ongoing tobacco use; however, she states over the last 5 days, she has been increasing in shortness of breath and has not been able to smoke. No alcohol or illicit drug use. She does have home health with [employer]. FAMILY HISTORY: Hepatitis C, lung cancer, COPD, kidney failure. Her parents from an MVA. ALLERGIES: Keflex causes swelling. HOME MEDICATIONS: Have not been reconciled. REVIEW OF SYSTEMS: A 14 point review of systems complete and negative except for those mentioned in HPI. PHYSICAL EXAMINATION: VITAL SIGNS: Temperature 97.8 degrees, heart rate 92, respirations 16, blood pressure 92/69, O2 94% on nasal cannula. GENERAL: Ms. Swanson is a pleasant 68-year-old female who is sitting up on the stretcher in no acute distress. HEENT: Atraumatic. Normocephalic. PERRL. NECK: Supple. Trachea midline. CARDIOVASCULAR: S1, S2 appreciated. No murmurs, gallops, rubs noted. RESPIRATORY: Lung sounds scattered rhonchi bilaterally. Did not appreciate any wheezes. However, patient did report wheezes prior to coming into the hospital, confirmed by her grandson. ABDOMEN: Flat, nontender, nondistended and positive bowel sounds in 4 quadrants. EXTREMITIES: Negative edema. No clubbing. No cyanosis. Bilateral pedal pulses are palpable. NEUROLOGIC: No focal deficits noted. DIAGNOSTIC DATA: Chest x-ray shows pulmonary edema and/or pneumonia. EKG, sinus tachycardia at a rate of 111 beats per minute. LABORATORY DATA: White count 15, hemoglobin and hematocrit 13 and 41, platelet count is 203,000. ABG, pH 7.46, CO2 is 34, PO2 64, bicarb 25, base excess 0.8. O2 saturation was 91% on 4 L nasal cannula. Sodium 141, potassium 4.2, BUN 21, creatinine 0.6, blood glucose was 144. Albumin 3.8, plasma lactate was 1.0. ASSESSMENT AND PLAN: 1. Chronic obstructive pulmonary disease exacerbation. We will admit her to medical telemetry floor. Continue bronchodilators, IV steroids, IV antibiotics, aggressive pulmonary toilet and supplemental O2. 2. Probable pneumonia. The patient was given a dose of IV Levaquin. She was following Dr. Gant for recent discharge for a multilobar pneumonia. We will consult him to assist with antibiotics. 3. Questionable pulmonary edema seen on chest x-ray. We will check a proBNP. Patient does not have any history of congestive heart failure. 4. Retrosternal chest pain versus gastroesophageal reflux disease. We will trend cardiac enzymes. No CAD history. She did not have any radiation of the pain. It was not associated with any increase in shortness of breath, nausea, vomiting, or diaphoresis. 5. Ongoing tobacco use. The patient was educated on smoking cessation as well as the means to quit. 6. Chronic back pain. Will continue on Percocet 10. 7. Further recommendation to follow physician evaluation, laboratory and diagnostic data. Dictated by ELA Madrid for Trey Garces MD cc: MD Josh Pak MD Eric Crampsey, CRNP MTDAliyah
[2018-12-13] MEDS: DUONEB (A & A) INH SCH ×3 (16:07→23:47)
--- NOTE | 2018-12-13 17:54 | HISTORY AND PHYSICAL ---
SUBJECTIVE: The patient came in with shortness of breath. She is a COPD patient, recently treated for pneumonia I believe. Came in with worsening shortness of breath. OBJECTIVE: On exam, she clearly has rales at the bases bilaterally. I feel like her breathing is a little bit off. She has COPD exacerbation and pneumonia. PLAN: I am going to progress with a CT because we are not sure if this is pneumonia versus some other process. She has a smoking history. We certainly need to rule out other pathology. ProBNP was not elevated. She does have chest pain, but it is not clearly cardiac. I do not think she has had a workup for heart disease, that is inaccurate in July. She had a negative Lexiscan and she as far as I can tell, has not had an echo, so we will pursue one of those tomorrow. Antibiotics have been started by ID, which I think is very reasonable, so we will continue to follow. This is a [id number] encounter note with ELA Madrid. cc: MD Junaid Pak CRNP
[2018-12-13] MEDS: NEURONTIN PO SCH (18:08)
[2018-12-13] MEDS: AZACTAM 1 GM in NS 50 ML IV SCH ×2 (18:08→23:44)
[2018-12-13] MEDS: MYCELEX TROCHE SCH ×2 (18:08→23:40)
[2018-12-13] MEDS: ADVAIR 250/50 DISKUS INH SCH (19:36)
--- NOTE | 2018-12-13 19:58 | INFECTIOUS DISEASE PROGRESS NO ---
DATE: 12/13/2018 PRESENT ILLNESS: Ms. Swanson has a pulmonary edema versus pneumonia. There is also a lingering oral candidiasis. DISCUSSION: She was seen in our office on Monday of this week as a follow-up for her bilateral pneumonia and COPD exacerbation that was previously treated with Augmentin, Cipro, and oral candidiasis, which was treated with Mycelex Andi. We obtained blood work and a sputum specimen at her visit, and the blood work showed a normal white blood cell count. Our plan was to get a chest CT, that had been scheduled for today. Instead, she went to the ER due to complaints of shortness of breath, cough and sputum, after recent exposure to respiratory illness from her grand- children. MEDICATIONS: We will start her on aztreonam 1 g IV every 8 hours due to her cephalexin allergy, and Zyvox 600 mg by mouth every 12 hours. She is also receiving Mycelex Andi. PHYSICAL EXAMINATION: Vital Signs: Temperature is 98 degrees, pulse rate 71, respiratory rate 16, blood pressure 88/40, O2 saturations 100% on 4 L nasal cannula. General: This is a chronically ill-appearing elderly female. She is sitting up in the bed currently in no acute distress. HEENT: Atraumatic, normocephalic. Oral mucous membranes are pink and moist. There are some white patches on her tongue, which she states is sore. Neck: Supple. Trachea is midline. Cardiovascular: Heart rate and rhythm are regular. Normal sinus rhythm on the monitor. Respiratory: Lung sounds are clear in the upper lobes. Diminished in the mid and bases with mild crackles noted. Abdomen: Soft, flat and nontender. Bowel sounds are active. Neurologic: She is awake, alert, oriented, able to move around in bed independently. LABORATORY AND X-RAY: Today her white count is 15.87, hemoglobin 13.6, platelet count 203,000. On 4 L nasal cannula, her pH was 7.46, pCO2 34, pO2 64, HCO3 25.4, creatinine 0.6, estimated GFR is greater than 60. Total bilirubin is 0.73, AST 14, ALT 5, alkaline phosphatase 103, creatine kinase is 29. A sputum specimen done on Monday has gram-negative rods and gram-positive cocci in the Gram stain. Final results are pending. Blood cultures are pending from this admission. Chest x-ray done this morning shows pulmonary edema and/or pneumonia with alveolar opacities in both lower lung staley. Her EKG shows sinus tachycardia from earlier on the unconfirmed report. ASSESSMENT AND PLAN: Ms. Swanson has a possible pneumonia versus pulmonary edema or possible combination. She now has a leukocytosis, which was not present on Monday. We will start her on aztreonam 1 g IV every 8 hours and Zyvox 600 mg by mouth every 12 hours. I have discussed with Dr. Garces regarding concerns about her Remeron, which should not be given with the Zyvox. We will stop Remeron for now, and he will consider possible alternatives so that she can receive the Zyvox. Also, she does have an oral candidiasis, and has been continued on the Mycelex Andi as she was receiving at home. She is also receiving IV steroids. I am unsure if these were in her system when she had her blood work drawn or not. If so, that may be a contributing factor to the leukocytosis. There are plans for a CT this afternoon. We will draw a procalcitonin level to help us differentiate between the possibility of respiratory tract infection versus pulmonary edema. These plans have been discussed with and recommended by Dr. Gant. COMORBIDITIES: For Ms. Swanson include a recent pneumonia admission, protein calorie malnutrition, and continued cigarette smoking with severe COPD. Dictated by ELA Loving for Josh Gant MD This chart was documented by, ELA Loving and accurately reflects the services performed, treatment plan and medical decisions as attested by the providers signature Josh Gant MD. cc: Josh Gant MD [facility]PITALAliyah
[2018-12-13] MEDS ORDERED: REMERON PO SCH (21:00)
[2018-12-13] MEDS: NAPROSYN PO SCH (21:46)
[2018-12-13] MEDS: MUCINEX PO SCH (21:46)
[2018-12-13] MEDS: ZYVOX PO SCH (21:46)
[2018-12-13 23:46] LABS: URINE SOURCE CLEAN CATCH
[2018-12-13 23:51] LABS: BILIRUBIN URINE NEGATIVE (NEGATIVE); BLOOD URINE MODERATE (NEGATIVE); COLOR YELLOW; GLUCOSE URINE 70 mg/dL (NEGATIVE); KETONE URINE TRACE mg/dL (NEGATIVE); LEUKOCYTES URINE NEGATIVE (NEGATIVE); NITRITE URINE NEGATIVE (NEGATIVE); PROTEIN URINE 200 mg/dL (NEGATIVE); SP GRAVITY URINE 1.028; TURBIDITY URINE CLEAR (CLEAR); UROBILINOGEN URINE 2 mg/dL (NORMAL)
[2018-12-13 23:52] LABS: UR EPITHELIAL CELLS <10 /HPF (<10); URINE BACTERIA NEGATIVE /HPF; URINE RBC 20-40 /HPF (<10); URINE WBC <10 /HPF (<10)
[2018-12-14] MEDS: DUONEB (A & A) INH SCH ×5 (03:42→20:16)
[2018-12-14] MEDS: PERCOCET-5 PO PRN ×4 (04:02→22:14)
[2018-12-14 05:13] LABS: ALLEN TEST YES; BE -3.5 mmoll (-3.0-3.0); BLOOD TYPE ARTERIAL; HCO3-(ACT) 22.1 mmoll (20.0-26.0); METHB 0.8 % (0.0-1.5); O2HB 92.7 % (95.0-99.0); PCO2(98.6) 44 mmHg (35-45); PO2(98.6) 70 mmHg (60-100); SAMPLE BLOOD; SAO2 95.3 % (95.0-100.0); THB 13.8 g/dL (11.5-17.4); pH(98.6) 7.32 (7.35-7.45)
[2018-12-14 05:15] LABS: MODALITY CANNULA
[2018-12-14] MEDS: SOLU-MEDROL IV SCH ×3 (06:17→21:04)
[2018-12-14] MEDS: PROTONIX PO SCH (06:18)
--- NOTE | 2018-12-14 06:30 | Diag Imaging Result Doc PS360 ---
EXAM: CHEST-PORTABLE HISTORY: Pneumonia/copd TECHNIQUE: Portable chest single view COMPARISON: 12/13/2018 FINDINGS: The lungs are well expanded. There are fewer infiltrates in the lower lungs compared to the prior study. No cardiomegaly. Sutures are found in the mid right lung. IMPRESSION: Interval improvement in the bilateral pneumonia Electronically signed by Devin Lopez 12/14/2018 6:28 AM
[2018-12-14 07:26] LABS: HEMATOCRIT 37.1 % (37.0-47.0); HEMOGLOBIN 12.1 g/dL (12.0-16.0); IMM GRAN# 0.03 X1000 (0.0-0.04); IMM GRAN% 0.3 % (0.0-0.5); LYMPH# 0.51 X1000 (1.2-3.4); LYMPH% 5.8 % (20.5-51.1); MCH 29.2 PG (27-31); MCHC 32.6 g/dL (33-37); MCV 89.6 FL (81-99); MONO% 2.3 % (1.7-9.3); MPV 10.5 FL (7.4-10.4); NEUT# 8.01 X1000 (1.4-6.5); NEUT% 91.6 % (42.2-75.2); PLT 169 X1000 (130-400); RBC 4.14 XMIL (4.2-5.4); RDW 15.1 % (11.5-14.5); WBC 8.75 X1000 (4.8-10.8)
[2018-12-14] MEDS: ADVAIR 250/50 DISKUS INH SCH ×2 (07:39→20:17)
[2018-12-14] MEDS: SYMBICORT 160/4.5 MICROGM INHALER INH SCH (07:39)
[2018-12-14 07:45] LABS: BANDS 2 % (0-1); LYMPHS 8 % (21-51); SEGS 90 % (42-75)
[2018-12-14 07:46] LABS: AGAP 14; ALB/GLOB RATIO 1.3; ALBUMIN 3.6 g/dL (3.5-5.0); ALKALINE PHOSPHATASE 98 U/L (32-104); BUN 41 mg/dL (8-22); CALCIUM 8.5 mg/dL (8.8-10.2); CHLORIDE 100 mmol/L (98-107); CK PROFILE 26 U/L (24-173); COSMO 292; CREATININE 0.7 mg/dL (0.5-0.9); ESTIMATED GFR > 60; GLUCOSE 245 mg/dL (70-104); GOT 10 U/L (10-30); GPT 6 U/L (10-36); POTASSIUM 3.9 mmol/L (3.5-5.1); SODIUM 137 mmol/L (136-145); TCO2 23 mmol/L (25-35); TOTAL PROTEIN 6.3 g/dL (6.3-8.3)
[2018-12-14] MEDS: AZACTAM 1 GM in NS 50 ML IV SCH ×2 (09:31→18:34)
[2018-12-14] MEDS: MUCINEX PO SCH ×2 (09:32→21:05)
[2018-12-14] MEDS: NAPROSYN PO SCH ×2 (09:32→21:05)
[2018-12-14] MEDS: NICODERM PATCH TD SCH (09:32)
[2018-12-14] MEDS: MYCELEX TROCHE SCH ×2 (09:32→18:34)
[2018-12-14] MEDS: NEURONTIN PO SCH ×3 (09:32→18:34)
[2018-12-14] MEDS: ZYVOX PO SCH ×2 (09:32→21:05)
--- NOTE | 2018-12-14 10:07 | Diag Imaging Result Doc PS360 ---
EXAM: CT THORAX W/CONTRAST 12/14/2018 HISTORY: pneumonia TECHNIQUE: This exam was performed using automated exposure control, adjustment of mA or kV according to patient size, and/or use of iterative reconstruction technique. COMMENT: The current examination is compared with the previous study of 10/26/2018. There is some adenopathy in the subcarina. This was also apparently present at the time the previous study. The thoracic aorta is not distended and there is no evidence of dissection. There is fairly good opacification of the pulmonary arteries and no filling defects are demonstrated. There is occlusion of multiple distal bronchial branches with secretions bilaterally in the lower lobes. This is worse than on the previous study. There are patchy opacities in both lower lobes particularly the left lower lobe. In some respects this is actually improved since the previous study. The opacities which were previously present in the left upper lobe have largely resolved. There is apparent fibrosis posteriorly in the right upper lobe. There is extensive emphysematous change. IMPRESSION: Bronchopneumonia. Improvement with regard to the left lower lobe and left upper lobe since the previous examination. Electronically signed by Quoc Lawrence 12/14/2018 10:04 AM
--- NOTE | 2018-12-14 11:30 | INFECTIOUS DISEASE PROGRESS NO ---
DATE: 12/14/2018 PRESENT ILLNESS: Ms. Swanson is being treated for bronchopneumonia as seen on CT scan. She has an oral candidiasis which is improving. MEDICATIONS: She is receiving aztreonam 1 g IV every 8 hours and Zyvox 600 mg by mouth every 12 hours. She also gets Mycelex troches 10 mg every 8 hours. PHYSICAL EXAMINATION: Vital Signs: Temperature is 98 degrees, pulse rate 83, respiratory rate 18, blood pressure 110/54, O2 saturation 97%. General: This is a chronically ill-appearing, elderly female. She is sitting up on the side of the bed currently, mildly anxious and asking for something to calm her nerves. HEENT: Atraumatic, normocephalic. Oral mucous membranes are pink and moist with no white patches today. Conjunctivae are pink. Neck: Supple. Trachea is midline. Cardiovascular: Heart rate and rhythm are regular. Normal sinus rhythm on the monitor. Respiratory: Lung sounds are clear in the upper lobes with rales noted in the mid and bases. Abdomen: Soft, flat and tender to the left side. Bowel sounds are active. Neurologic: She is awake, alert, and oriented. Able to move around in bed independently. LABORATORY AND X-RAY: Today her white count is 8.75, hemoglobin 12.1, platelet count 169,000. ABGs on 4 L nasal cannula show a pH of 7.32, pCO2 44, PO2 70, HC03 22.1. Creatinine is 0.7, estimated GFR is greater than 60. Total bilirubin 0.3, AST 10, ALT 6, alkaline phosphatase 98. Creatine kinase 26. Blood cultures have been drawn and are preliminary. Sputum culture grew normal preston. Chest x-ray this morning showed interval improvement in bilateral pneumonia with fewer infiltrates in the lower lobes. A CT of the chest done this morning shows bronchopneumonia with improvement to the left lower lobe and left upper lobe since the previous exam. ASSESSMENT AND PLAN: Ms. Swanson has a bronchopneumonia as seen on CT scan. Her leukocytosis has resolved today. Her mouth is also feeling much better, and she states she is breathing better. For now, the plan is to continue her Zyvox and aztreonam as ordered, and keep her on Mycelex troches until her antibiotics are completed. There is some left-sided abdominal pain, so we will obtain a urine culture and renal ultrasound today. These plans have been discussed with and recommended by Dr. Gant. COMORBIDITIES: Comorbidities for Ms. Swanson include severe COPD with continued cigarette smoking, protein calorie malnutrition, and admission for pneumonia last month. Dictated by ELA Loving for Josh Gant MD This chart was documented by, ELA Loving and accurately reflects the services performed, treatment plan and medical decisions as attested by the providers signature Josh Gant MD. cc: Josh Gant MD [facility]
--- NOTE | 2018-12-14 12:30 | Diag Imaging Result Doc PS360 ---
EXAM: US RENAL 2 (RETROPER) COMPLETE 12/14/2018 HISTORY: abdominal pain TECHNIQUE: Renal ultrasound COMMENT: There is no evidence of hydronephrosis or mass. The right kidney is 10.4 x 5.1 x 4.4 cm the left is 11.1 x 3.8 x 4.0 cm. The urinary bladder is not distended. There are no stones. IMPRESSION: No evidence of obstructive uropathy. Electronically signed by Quoc Lawrence 12/14/2018 12:27 PM
[2018-12-14] MEDS: LOVENOX SUBQ SCH (14:02)
[2018-12-14] MEDS ORDERED: RESTORIL PO PRN (17:32)
--- NOTE | 2018-12-14 17:57 | PROGRESS NOTE ---
DATE: 12/14/2018 SUBJECTIVE: The patient looks better, she is certainly not wheezing, her breath sounds are clear bilaterally. She seems a bit better. OBJECTIVE: Blood pressure is 116/68, heart rate is 76, respiratory rate 18, temperature 97.Cardiovascular: Regular rate and rhythm. Pulmonary: Bilateral breath sounds clear to auscultation. GI: Soft, nontender, nondistended. Bowel sounds are positive. LABORATORY DATA: Her white count is 8, hemoglobin and hematocrit 12 and 37, platelets 169,000. Basic was normal. Her CT showed bronchopneumonia in the area I think it is in lower lobes and she looks like she may have some mucus plugging too and severe COPD. PROBLEM LIST: 1. Bronchopneumonia. We will continue antibiotics, she is on breathing treatments. I am going to add Mucomyst. 2. Chronic obstructive pulmonary disease exacerbation is mild component. I would encourage her to continue pulmonary toilet, stop smoking and we will follow closely. 3. Anxiety. We will continue to follow closely. Dr. Gant is concerned about mixing Zyvox with the mirtazapine, we will just give her a little bit of maybe Restoril at night see if we can help her sleep. cc: Trey Garces MD
[2018-12-14] MEDS: MUCOMYST 20% INH SCH (20:16)
[2018-12-15] MEDS: MYCELEX TROCHE SCH ×3 (00:06→15:45)
[2018-12-15] MEDS: AZACTAM 1 GM in NS 50 ML IV SCH ×3 (00:06→15:46)
[2018-12-15] MEDS: DUONEB (A & A) INH SCH ×4 (00:52→11:17)
[2018-12-15] MEDS: NICODERM PATCH TD SCH ×2 (04:13→09:36)
[2018-12-15] MEDS: PERCOCET-5 PO PRN ×4 (04:24→22:29)
[2018-12-15] MEDS: SOLU-MEDROL IV SCH ×2 (06:11→18:34)
[2018-12-15] MEDS: PROTONIX PO SCH (06:11)
[2018-12-15 07:37] LABS: BASO# 0.01 X1000 (0.0-0.2); BASO% 0.1 % (0.0-0.8); HEMATOCRIT 37.9 % (37.0-47.0); HEMOGLOBIN 12.1 g/dL (12.0-16.0); IMM GRAN# 0.07 X1000 (0.0-0.04); IMM GRAN% 0.4 % (0.0-0.5); LYMPH% 3.7 % (20.5-51.1); MCH 29.2 PG (27-31); MCHC 31.9 g/dL (33-37); MCV 91.3 FL (81-99); MONO# 0.73 X1000 (0.11-0.59); MONO% 4.5 % (1.7-9.3); MPV 10.8 FL (7.4-10.4); NEUT# 14.72 X1000 (1.4-6.5); NEUT% 91.3 % (42.2-75.2); PLT 225 X1000 (130-400); RBC 4.15 XMIL (4.2-5.4); RDW 15.2 % (11.5-14.5); WBC 16.13 X1000 (4.8-10.8)
[2018-12-15] MEDS: SYMBICORT 160/4.5 MICROGM INHALER INH SCH (07:44)
[2018-12-15] MEDS: MUCOMYST 20% INH SCH ×2 (07:44→21:58)
[2018-12-15] MEDS: ADVAIR 250/50 DISKUS INH SCH ×2 (07:44→21:59)
[2018-12-15 08:07] LABS: AGAP 13; BUN 49 mg/dL (8-22); CALCIUM 8.6 mg/dL (8.8-10.2); CHLORIDE 104 mmol/L (98-107); COSMO 306; CREATININE 0.9 mg/dL (0.5-0.9); ESTIMATED GFR > 60; GLUCOSE 247 mg/dL (70-104); POTASSIUM 3.8 mmol/L (3.5-5.1); SODIUM 143 mmol/L (136-145); TCO2 26 mmol/L (25-35)
[2018-12-15] MEDS: MUCINEX PO SCH ×2 (09:35→20:18)
[2018-12-15] MEDS: NEURONTIN PO SCH ×3 (09:36→20:19)
[2018-12-15] MEDS: ZYVOX PO SCH ×2 (09:36→20:19)
[2018-12-15] MEDS: NAPROSYN PO SCH ×2 (09:36→20:18)
[2018-12-15] MEDS ORDERED: DESYREL PO PRN (14:57)
[2018-12-15] MEDS ORDERED: NS NEB INH SCH (15:00)
[2018-12-15] MEDS: LOVENOX SUBQ SCH (15:43)
[2018-12-15] MEDS: XOPENEX NEB INH SCH ×2 (15:58→21:59)
[2018-12-15] MEDS: ATROVENT NEB INH SCH ×2 (15:59→21:58)
--- NOTE | 2018-12-15 16:04 | PROGRESS NOTE ---
DATE: 12/15/2018 SUBJECTIVE: The patient is breathing a bit better, but she is complaining of the nurse. She says she did not sleep last night and she refused her last 2 breathing treatments because of just jitteriness and anxiety. OBJECTIVE: Vital Signs: Blood pressure is 109/65, heart rate of 94, respiratory rate of 18, 90% saturation on 4 L. She is afebrile. She has been in the 80s and 90s. Cardiovascular: Regular rate and rhythm. Pulmonary: No rhonchi, no wheezing. GI: Soft, nontender, nondistended. Bowel sounds are positive. LABS: White count 16, hemoglobin and hematocrit 12 and 37, platelets 225. Basic was normal. PROBLEM LIST: 1. Bronchopneumonia. She is on aztreonam and Zyvox per Infectious Disease recommendations and is doing well. I am going to change her breathing treatments just because of her anxiety. 2. Chronic obstructive pulmonary disease exacerbation. I am going to wean her steroids a bit and change her to Xopenex with Atrovent and follow. I think I have already weaned her steroids. The Restoril; when I discussed with her, she said she did have that. 3. Tobacco abuse. Discussed about treatment. DISPOSITION: Will hopefully go home in the next 1 to 2 days, pending her clinical status. cc: Tery Garces MD
[2018-12-15] MEDS: RESTORIL PO PRN (22:30)
[2018-12-16] MEDS: AZACTAM 1 GM in NS 50 ML IV SCH ×3 (00:07→16:04)
[2018-12-16] MEDS: MYCELEX TROCHE SCH ×3 (00:09→16:07)
[2018-12-16] MEDS: SOLU-MEDROL IV SCH (05:04)
[2018-12-16] MEDS: PERCOCET-5 PO PRN ×3 (06:50→19:11)
[2018-12-16] MEDS: PROTONIX PO SCH (06:51)
[2018-12-16 07:15] LABS: BASO# 0.02 X1000 (0.0-0.2); BASO% 0.2 % (0.0-0.8); HEMATOCRIT 35.8 % (37.0-47.0); HEMOGLOBIN 11.3 g/dL (12.0-16.0); IMM GRAN# 0.15 X1000 (0.0-0.04); IMM GRAN% 1.2 % (0.0-0.5); LYMPH# 0.65 X1000 (1.2-3.4); LYMPH% 5.4 % (20.5-51.1); MCH 28.9 PG (27-31); MCHC 31.6 g/dL (33-37); MCV 91.6 FL (81-99); MONO# 0.48 X1000 (0.11-0.59); MPV 10.5 FL (7.4-10.4); NEUT# 10.71 X1000 (1.4-6.5); NEUT% 89.2 % (42.2-75.2); PLT 216 X1000 (130-400); RBC 3.91 XMIL (4.2-5.4); RDW 15.5 % (11.5-14.5); WBC 12.01 X1000 (4.8-10.8)
[2018-12-16 07:27] LABS: BANDS 2 % (0-1); LYMPHS 4 % (21-51); MONO 2 % (1-9); SEGS 90 % (42-75)
[2018-12-16 07:53] LABS: FREE T4 0.85 ng/dL (0.93-1.70); TSH 0.26 uIUmL (0.27-4.20)
[2018-12-16 08:05] LABS: AGAP 7; BUN 40 mg/dL (8-22); CALCIUM 8.5 mg/dL (8.8-10.2); CHLORIDE 109 mmol/L (98-107); COSMO 302; CREATININE 0.6 mg/dL (0.5-0.9); ESTIMATED GFR > 60; GLUCOSE 162 mg/dL (70-104); SODIUM 145 mmol/L (136-145); TCO2 29 mmol/L (25-35)
[2018-12-16 08:16] LABS: POTASSIUM 5.2 mmol/L (3.5-5.1)
[2018-12-16] MEDS: SYMBICORT 160/4.5 MICROGM INHALER INH SCH (08:26)
[2018-12-16] MEDS: MUCOMYST 20% INH SCH ×2 (08:26→22:40)
[2018-12-16] MEDS: ADVAIR 250/50 DISKUS INH SCH ×2 (08:27→22:40)
[2018-12-16] MEDS: NICODERM PATCH TD SCH (08:28)
[2018-12-16] MEDS: ZYVOX PO SCH ×2 (08:28→20:46)
[2018-12-16] MEDS: NAPROSYN PO SCH ×2 (08:28→20:46)
[2018-12-16] MEDS: NEURONTIN PO SCH ×3 (08:28→20:46)
[2018-12-16] MEDS: MUCINEX PO SCH ×2 (08:28→20:46)
[2018-12-16] MEDS: ATROVENT NEB INH SCH ×3 (10:10→22:40)
[2018-12-16] MEDS: XOPENEX NEB INH SCH ×3 (10:10→22:40)
[2018-12-16] MEDS: TYLENOL PO PRN ×2 (10:38→21:25)
[2018-12-16] MEDS: LOVENOX SUBQ SCH (16:06)
--- NOTE | 2018-12-16 18:12 | PROGRESS NOTE ---
DATE: 12/16/2018 SUBJECTIVE: She is breathing a bit better. Not as agitated. OBJECTIVE: Cardiovascular: Regular rate and rhythm. Pulmonary: Bilateral breath sounds. Clear to auscultation. I did not hear any rhonchi or wheezing. GI: Soft, nontender, nondistended. Bowel sounds are positive. LABORATORY DATA: Her white count is down to 12, hemoglobin and hematocrit 11 and 35, platelets 216,000. Potassium is 5.2, BUN is 40. Azotemia is probably related to the steroids. PROBLEM LIST: 1. Bronchopneumonia which is persistent. That looks okay. No major issues. Laboratory data otherwise is doing okay. We will continue empiric antibiotics. He will need Dr. Gant's guidance on what antibiotics we are going to discharge her on because she is not on switchable ones now. But I think if we can settle on something, she can probably go home tomorrow. 2. Hypothyroidism. She has central or secondary hypothyroidism. We will get a pituitary evaluation. I am going to start her on low-dose Synthroid. 3. Chronic obstructive pulmonary disease exacerbation, improving. I am going to decrease her steroids and follow. DISPOSITION: Again, I anticipate discharge tomorrow if stable. cc: Trey Garces MD
[2018-12-17] MEDS: MYCELEX TROCHE SCH ×3 (04:44→21:19)
[2018-12-17] MEDS: AZACTAM 1 GM in NS 50 ML IV SCH ×3 (04:44→21:20)
[2018-12-17] MEDS: PERCOCET-5 PO PRN ×2 (05:08→11:03)
[2018-12-17 07:38] LABS: AGAP 10; BASO# 0.08 X1000 (0.0-0.2); BASO% 0.7 % (0.0-0.8); BUN 27 mg/dL (8-22); CALCIUM 8.2 mg/dL (8.8-10.2); CHLORIDE 109 mmol/L (98-107); COSMO 294; CREATININE 0.6 mg/dL (0.5-0.9); EOS# 0.08 X1000 (0.0-0.7); EOS% 0.7 % (0.0-10.0); ESTIMATED GFR > 60; GLUCOSE 97 mg/dL (70-104); HEMOGLOBIN 11.9 g/dL (12.0-16.0); IMM GRAN# 0.57 X1000 (0.0-0.04); IMM GRAN% 5.1 % (0.0-0.5); LYMPH# 2.12 X1000 (1.2-3.4); LYMPH% 18.8 % (20.5-51.1); MCH 29.3 PG (27-31); MCHC 32.2 g/dL (33-37); MCV 91.1 FL (81-99); MONO% 8.9 % (1.7-9.3); MPV 10.2 FL (7.4-10.4); NEUT# 7.41 X1000 (1.4-6.5); NEUT% 65.8 % (42.2-75.2); PLT 238 X1000 (130-400); POTASSIUM 4.3 mmol/L (3.5-5.1); RBC 4.06 XMIL (4.2-5.4); RDW 15.6 % (11.5-14.5); SODIUM 145 mmol/L (136-145); TCO2 26 mmol/L (25-35); WBC 11.26 X1000 (4.8-10.8)
[2018-12-17] MEDS: SYNTHROID PO SCH (07:41)
[2018-12-17] MEDS: PROTONIX PO SCH (07:45)
--- NOTE | 2018-12-17 08:06 | EKG Report ---
Test Performed on : 12/16/2018 5:02:30 PM Test Reason : hyperkalemia Blood Pressure : / mmHG Vent. Rate : 079 BPM Atrial Rate : 079 BPM P-R Int : 144 ms QRS Dur : 062 ms QT Int : 364 ms P-R-T Axes : 076 044 042 degrees QTc Int : 417 ms Normal sinus rhythm. Septal infarct (cited on or before 19-JUL-2010) Abnormal ECG When compared with ECG of 13-DEC-2018 08:35, (Unconfirmed) Questionable change in initial forces of Septal leads Nonspecific T wave abnormality, improved in Inferior leads Unconfirmed Result
[2018-12-17] MEDS: MUCINEX PO SCH ×2 (08:33→21:20)
[2018-12-17] MEDS: NICODERM PATCH TD SCH (08:33)
[2018-12-17] MEDS: NAPROSYN PO SCH ×2 (08:33→21:19)
[2018-12-17] MEDS: ZYVOX PO SCH ×2 (08:33→21:19)
[2018-12-17] MEDS: SOLU-MEDROL IV SCH (08:34)
[2018-12-17] MEDS: NEURONTIN PO SCH ×3 (08:37→16:50)
[2018-12-17 09:03] LABS: BANDS 6 % (0-1); LYMPHS 18 % (21-51); MONO 4 % (1-9); SEGS 72 % (42-75)
[2018-12-17 09:04] LABS: HYPOCHROM 1+
[2018-12-17] MEDS: TYLENOL PO PRN ×2 (09:23→21:20)
--- NOTE | 2018-12-17 11:20 | Diag Imaging Result Doc PS360 ---
EXAM: MRI BRAIN W/CONTRAST INDICATION: evaluate pituitary COMPARISON: None. FINDINGS: There is no evidence of acute infarct. There is mild patchy T2/FLAIR hyperintensity in the periventricular white matter suggesting minimal white matter microangiopathy. There is no discrete intracranial mass, mass effect, or intracranial hemorrhage. There is no evidence of abnormal intracranial enhancement. The surrounding soft tissues and bony structures are essentially unremarkable. Review of the thin section images through the sella turcica reveals a normally enhancing pituitary gland. No pituitary mass or cyst is identified. The optic chiasm is unremarkable. IMPRESSION: 1.Suggestion of minimal white matter microangiopathy. 2.Grossly normal pituitary gland. Electronically signed by Lit Muro 12/17/2018 11:18 AM
[2018-12-17] MEDS: MUCOMYST 20% INH SCH ×2 (11:41→23:19)
[2018-12-17] MEDS: ATROVENT NEB INH SCH ×3 (11:41→23:18)
[2018-12-17] MEDS: XOPENEX NEB INH SCH ×3 (11:41→23:18)
[2018-12-17] MEDS: SYMBICORT 160/4.5 MICROGM INHALER INH SCH (11:42)
[2018-12-17] MEDS: ADVAIR 250/50 DISKUS INH SCH ×2 (11:42→23:17)
[2018-12-17] MEDS ORDERED: DILAUDID IV ONE (13:08)
[2018-12-17] MEDS: LOVENOX SUBQ SCH (13:25)
--- NOTE | 2018-12-17 14:27 | INFECTIOUS DISEASE PROGRESS NO ---
DATE: 12/17/2018 PRESENT ILLNESS: The patient has bilateral pneumonia as seen on CAT scan. She also has oral candidiasis, which has cleared. MEDICATIONS: Currently, the patient is getting a combination of aztreonam and Zyvox. The patient also is receiving steroids. PHYSICAL EXAMINATION: Vital Signs: Temperature is 97.2 degrees, pulse 69, respirations 20, blood pressure 127/71. General: This is an ill-appearing, elderly female. She is in no acute distress. Head, Eyes, Ears, Nose, and Throat: She can hear my spoken words and see near objects. She has a few white patches on her tongue. Neck: No pain with movement. Lungs: The lungs are clear to auscultation. Cardiovascular: Heart rate is regular. Thorax: The patient has an increased AP diameter of the chest. Abdomen: Soft and nontender. LAB AND X-RAY: Chest x-ray shows improvement in the patient's pneumonia. CBC shows a white count of 11,260, hemoglobin 11.9, and platelet count 238,000. Creatinine is 0.6. GFR is greater than 60. Blood and urine cultures are negative. MRI of the brain shows minimal microangiopathy. ASSESSMENT AND PLAN: The patient has severe chronic obstructive pulmonary disease and she is being discharged now on Levaquin 500 mg daily, #10. Also, I am going to have her get Mycelex troches to take every 12 hours in view of the fact that the patient had oral candidiasis and she was on steroids, and when she goes home, she will be on antibiotics and possibly steroids so I am going to send her home also on Mycelex to try to prevent a recurrence of oral candidiasis. My plan is to have her come back to my office in 1 week at which time the patient will be examined and we will repeat the chest x-ray. COMORBIDITIES: She has COPD and she is a cigarette smoker. She also appears malnourished. cc: Josh Gant MD
--- NOTE | 2018-12-17 14:40 | PROGRESS NOTE ---
DATE: 12/17/2018 SUBJECTIVE: The patient is complaining of severe back pain at this moment. As per the patient, she has been taking Percocet 10 every 6 hours as needed, and she has been getting during this hospitalization Percocet 5 q.6 hours as needed. I will increase the Percocet to 10, and I will monitor. Also I will give her a low dose of Dilaudid. MRI of the head did not show any abnormality, just minimal white matter microangiopathy and normal pituitary gland. I discussed the case with Dr. Josh Gant. Once she is ready, she will be discharged home with p.o. antibiotics and follow up with Infectious Disease Department. OBJECTIVE: Vital Signs: Temperature 97.2 degrees, pulse 69, respiratory rate 20, blood pressure 127/71, oxygen saturation 99 on 3 L of nasal cannula. HEENT: Head normocephalic. No trauma. PERRLA. Neck: Supple. No JVD. Central trachea. Chest: Decreased breath sounds globally, some rhonchi and crepitus at the left base mostly, but also the left upper part of the lung. She has no wheezing. Abdomen: Soft, nontender, nondistended. No hepatosplenomegaly. Extremities: No edema, no clubbing, no cyanosis. Neurological: The patient is alert and oriented x3. No focal deficit. She is complaining of severe back pain. LABORATORY DATA: WBC 11.2, hemoglobin 11.9, hematocrit 37, platelets 238,000. Sodium 145, potassium 4.3, chloride 109, bicarbonate 26, BUN 27, creatinine 0.6, glucose 97, calcium 8.2. ASSESSMENT AND PLAN: 1. Bronchopneumonia, which is persistent, left upper and lower lobe. Infectious Disease Department on board. We will continue with antibiotics. Hopefully, this patient can be discharged in the next 24 hours with p.o. antibiotics and follow up with Dr. Gant as an outpatient. Today, she is complaining of severe back pain. 2. Hypothyroidism. Negative MRI. Continue with the same management, low-dose Synthroid. She needs to follow this up with her primary care doctor. 3. Chronic obstructive pulmonary disease exacerbation, improving. She is not wheezing today. I will keep this patient on the same dose of steroids and tomorrow I will send her home with p.o. treatment. 4. Severe back pain. As per the patient, she follows at the pain clinic and she has been taking Percocet 10 every 6 hours as needed apparently since 1993. I will put her back on her regular medications and I will monitor. cc: Ronaldo Garza MD
[2018-12-17] MEDS: PERCOCET-10 PO PRN (17:13)
[2018-12-17] MEDS: RESTORIL PO PRN (21:24)
[2018-12-18] MEDS: PERCOCET-10 PO PRN ×3 (02:09→15:13)
[2018-12-18] MEDS: TYLENOL PO PRN (03:39)
[2018-12-18] MEDS: AZACTAM 1 GM in NS 50 ML IV SCH (06:28)
[2018-12-18] MEDS: MYCELEX TROCHE SCH (06:29)
[2018-12-18] MEDS: PROTONIX PO SCH (06:29)
[2018-12-18] MEDS: SYNTHROID PO SCH (06:29)
[2018-12-18 07:34] VITALS: BP 134/74
[2018-12-18] MEDS: ADVAIR 250/50 DISKUS INH SCH (08:00)
[2018-12-18] MEDS: SYMBICORT 160/4.5 MICROGM INHALER INH SCH (08:00)
[2018-12-18] MEDS: NAPROSYN PO SCH (10:07)
[2018-12-18] MEDS: NICODERM PATCH TD SCH (10:07)
[2018-12-18] MEDS: ZYVOX PO SCH (10:07)
[2018-12-18] MEDS: NEURONTIN PO SCH (10:07)
[2018-12-18] MEDS: MUCINEX PO SCH (10:07)
[2018-12-18] MEDS: SOLU-MEDROL IV SCH (10:07)
[2018-12-18] MEDS: XOPENEX NEB INH SCH (11:13)
[2018-12-18] MEDS: MUCOMYST 20% INH SCH (11:13)
[2018-12-18] MEDS: ATROVENT NEB INH SCH (11:13)
--- NOTE | 2018-12-18 22:59 | DISCHARGE SUMMARY ---
ADMISSION DATE: 12/13/2018 DISCHARGE DATE: 12/18/2018 DIAGNOSES: 1. Chronic obstructive pulmonary disease acute exacerbation, resolved. 2. Bronchopneumonia left upper and lower lobe. 3. Hypothyroidism. 4. Severe back pain, which is chronic. 5. Ongoing tobacco use. CONSULTATIONS: Josh Gant MD, Infectious Disease. DIAGNOSTICS: 1. 12/13/2017 chest x-ray revealed pulmonary edema and/or pneumonia. 2. 12/14/2018 chest x-ray reveals interval improvement in the bilateral pneumonia. 3. 12/14/2018 renal ultrasound reveals no evidence of obstructive uropathy. 4. 12/14/2018 CT of the chest with contrast revealed bronchopneumonia. 5. MRI of the brain revealed suggestion of minimal white-matter microangiopathy, grossly normal pituitary gland. MICROBIOLOGY: 1. Blood cultures x2 revealed no growth after 48 hours. 2. Urine culture revealed no growth. HOSPITAL COURSE: Ms. Swanson presented to emergency room complaining of shortness of breath, cough and productive sputum. She was found to be in a COPD acute exacerbation for which she received IV steroids as well as antibiotics and bronchodilators. Thankfully, she has progressed, and she is back to her normal. She is found to have multilobar pneumonia for which we did consult Dr. Gant to follow. She was initially placed on Aztreonam and Zyvox and has been transitioned over to Levaquin 500 mg daily for 10 days for discharge. She is found to have oral candidiasis for which she received Mycelex Andi. This has improved. She is more comfortable. She is able to eat and drink more now. She is found to be hypothyroid. She was started on low-dose Synthroid. A brain MRI was ordered to evaluate the pituitary gland, and she was found have a grossly normal pituitary gland. DISCHARGE VITAL SIGNS: Blood pressure is 134/74 with a heart rate of 68, respirations are 20, temperature is 98.5 degrees, room air sats are 95% with sats 97% to 100% on nasal cannula. DISCHARGE PHYSICAL EXAMINATION: Cardiovascular: Regular rate and rhythm. S1 and S2 appreciated. Pulmonary: Breath sounds are clear with no increased work of breathing noted. Chest rises and falls symmetric with respiration. Chest wall is nontender to palpation. Gastrointestinal: Soft, nontender, nondistended with bowel sounds in all 4 quadrants. Neurologic: She is alert and oriented x3. DISCHARGE MEDICATIONS: 1. Protonix 40 mg p.o. daily. 2. Percocet 10 q.6 hours p.r.n. pain. 3. NicoDerm patch 14 mg daily. 4. Naprosyn 500 mg p.o. b.i.d. 5. Medrol Dosepak as directed. 6. Levothyroxine 25 mcg daily. 7. Levaquin 500 mg p.o. daily x10 days. 8. Mucinex 600 mg p.o. b.i.d. 9. Gabapentin 400 mg p.o. t.i.d. 10. Advair 250/50, one puff b.i.d. 11. Mycelex Andi 1 q.12 hours. 12. Symbicort 160/4.5 one inhalation daily. 13. Albuterol inhaler 2 puffs q.6 hours p.r.n. wheezing. FOLLOWUP: 1. She is to follow up with Dr. Josh Gant in 1 week. She is to call to schedule an appointment. 2. Her primary care provider, ELA Mcclure. She needs to call and schedule an appointment in the next 1 to 2 weeks. 3. She has been instructed to call to be seen sooner or return to the ER for any syncope, dizziness, chest pain, palpitations, any increasing shortness of breath, temperature greater than 101, any black or bloody vomitus or stools or for any questions or concerns that she may have. DISPOSITION: She is being discharged home in stable condition with family members. TIME SPENT: This is a greater than 30-minute discharge. Dictated by ELA Shah for Ronaldo Garza MD This chart was documented by, ELA Shah and accurately reflects the services performed, treatment plan and medical decisions as attested by the providers signature Ronaldo Garza MD. cc: ELA Shah MD Eric Crampsey, CRNP
== END 2018-12-18 15:19 | disposition home health service (06) | DRG 871 ==
LOC: SUPCPDRO → ED 08:26 → 3N 13:08 → SUATTDRO 13:08
PROVIDERS: ATTEND Internal Medicine
CPT/HCPCS: 36415; 70552; 71010; 71045; 71260; 76770; 80048; 80053; 81001; 82550; 82565; 82805; 82948; 83605; 83880; 84145; 84439; 84443; 84484; 85025; 87040; 87070; 87088; 87205; 93005; 93010; 94640; 94761; 94799; 96365; 96375; 99285; A9270; A9579; J1170; J1650; J1956; J2270; J2405; J2920; J2930; Q9967; S0073; XXXXX